=== PATIENT | female | born 1970 | race Two or more races ===

== ENCOUNTER 2017-02-13 11:43 | Emergency (ER) | payer OTHER ==
[~2017-02-13] VITALS: Ht 152.4 cm; Wt 59.0 kg
[2017-02-13] MEDS ORDERED: HYDROmorphone 2 MG/ML VIAL IV ONE (12:15)
[2017-02-13] MEDS ORDERED: ONDANSETRON PF 4 MG/2 ML VIAL. IV ONE (12:15)
[2017-02-13] MEDS ORDERED: IV NORMAL SALINE 500ML BAG 500 ML IV ONE (12:15)
[2017-02-13 12:39] LABS: BILIRUBIN,URINE NEGATIVE (NEG); GLUCOSE,URINE NEGATIVE (NEG); NITRITE,URINE NEGATIVE (NEG); PROTEIN,URINE NEGATIVE (NEG-TRACE); UROBILINOGEN,URINE 0.2 mg/dL (0.2 mg/dL)
[2017-02-13 12:47] LABS: BASO # 0.1 x10^3/uL (0.0-0.2); BASO % 1 % (0-3); EOS % 1 % (0-3); HEMATOCRIT 40.7 % (36.0-47.0); HEMOGLOBIN 12.9 g/dL (12.0-15.5); LYMPH # 1.2 x10^3/uL (1.0-4.8); LYMPH % 16 % (24-48); MEAN CORPUSCULAR HEMOGLOBIN 26 pg (25-35); MEAN CORPUSCULAR HGB CONC 32 g/dL (31-37); MEAN CORPUSCULAR VOLUME 81 fL (79-100); MONO % 7 % (0-9); NEUT % 76 % (31-73); PLATELET COUNT 194 x10^3/uL (140-400); RED BLOOD COUNT 5.05 x10^6/uL (3.50-5.40); RED CELL DISTRIBUTION WIDTH 20.3 % (11.5-14.5); WHITE BLOOD COUNT 7.8 x10^3/uL (4.0-11.0)
--- NOTE | 2017-02-13 12:48 | PHYS DOC ---
Past Medical History Past Medical History: Hypothyroid Past Surgical History: Tubal ligation, Other Additional Past Surgical Histo: BILATERAL ROTATOR CUFF REPAIR Alcohol Use: None Drug Use: None Adult General Chief Complaint Chief Complaint: LOWER BACK PAIN OR INJURY HPI HPI 38-year-old female presenting to the emergency department today with lower lumbar back pain after lifting a heavy piece of equipment at work yesterday. She reports having sharp shooting pain that radiates down her buttocks into her thigh. She also reports right lower quadrant abdominal pain with nausea. She is concerned that she may have appendicitis. He denies any vomiting blood in stool fevers or chills. Review of systems is negative for shortness of breath cough chest pain headache. She denies numbness weakness or tingling in her legs. She denies any incontinence dysuria or polyuria. All other review of systems is negative unless otherwise noted in history of present illness. ED course: 46-year-old female presenting to the emergency department today with lower lumbar back pain suggestive of probable musculoskeletal back pain however the patient is concerned she might have appendicitis having right lower quadrant abdominal pain and nausea. Upon arrival the patient is afebrile with normal heart rate. She is well-appearing. Upon examination of the abdomen the abdomen is mildly tender in the right lower quadrant without rebound tenderness guarding. Equivocal McBurney's point. Otherwise the remainder of the abdomen is nontender. The lower extremities have 5 out of 5 strength bilaterally. 2+ deep tendon reflexes in the legs. The remainder the exam is unremarkable. Blood work obtained along with CT the abdomen pelvis which was unremarkable. The patient was given IV hydromorphone along with Zofran which improved her low back pain. She was up slightly discharged home with oral opioids and muscle relaxants to follow up with her doctor the next 2-3 days. The patient was then discharged home in stable condition. They were to return if their symptoms worsened or if they were concerned for any reason. [id number] discharge instructions and return precautions were given. Patient's questions were answered to their satisfaction. Patient is comfortable plan. Review of Systems Review of Systems SEE ABOVE. Current Medications Current Medications Current Medications Medications (Trade) Dose Ordered Sig/Carolyn Start Time Stop Time Status Last Admin Dose Admin Hydromorphone HCl (Dilaudid) 0.5 mg 1X ONCE 02/13/17 12:15 02/13/17 12:16 DC 02/13/17 12:37 0.5 MG Info (Do NOT chart on this entry -- for MONITORING) 1 each PRN DAILY PRN 02/13/17 14:30 02/15/17 14:29 Iohexol (Omnipaque 300 Mg/ml) 75 ml 1X ONCE 02/13/17 14:15 02/13/17 14:16 DC 02/13/17 14:37 75 ML Ondansetron HCl (Zofran) 4 mg 1X ONCE 02/13/17 12:15 02/13/17 12:16 DC 02/13/17 12:37 4 MG Sodium Chloride 500 ml @ 500 mls/hr 1X ONCE 02/13/17 12:15 02/13/17 13:14 DC 02/13/17 12:37 500 MLS/HR Allergies Allergies Allergies Coded Allergies Type Severity Reaction Last Updated Verified No Known Drug Allergies 10/06/13 No Physical Exam Physical Exam SEE ABOVE Constitutional: Well developed, well nourished, no acute distress, non-toxic appearance. [] HENT: Normocephalic, atraumatic, bilateral external ears normal, oropharynx moist, no oral exudates, nose normal. [] Eyes: PERRLA, EOMI, conjunctiva normal, no discharge. [] Neck: Normal range of motion, no tenderness, supple, no stridor. [] Cardiovascular:Heart rate regular rhythm, no murmur [] Lungs & Thorax: Bilateral breath sounds clear to auscultation [] Abdomen: SEE ABOVE Skin: Warm, dry, no erythema, no rash. [] Back: Mild tenderness on the right paraspinal musculature. Positive straight leg test. Extremities: No tenderness, no cyanosis, no clubbing, ROM intact, no edema. [] Neurologic: Alert and oriented X 3, normal motor function, normal sensory function, no focal deficits noted. [] Psychologic: Affect normal, judgement normal, mood normal. [] Current Patient Data Vital Signs Vital Signs Date Time Temp Pulse Resp B/P (MAP) Pulse Ox O2 Delivery O2 Flow Rate FiO2 02/13/17 12:04 98.7 79 18 99 Room Air 98.7 Lab Values Laboratory Tests Test 02/13/17 12:20 02/13/17 12:33 02/13/17 12:35 02/13/17 13:41 Urine Collection Type Unknown Urine Color Yellow Urine Clarity Clear Urine pH 8.0 Urine Specific [place] 1.020 Urine Protein Negative mg/dL (NEG-TRACE) Urine Glucose (UA) Negative mg/dL (NEG) Urine Ketones (Stick) Negative mg/dL (NEG) Urine Blood Negative (NEG) Urine Nitrite Negative (NEG) Urine Bilirubin Negative (NEG) Urine Urobilinogen Dipstick 0.2 mg/dL (0.2 mg/dL) Urine Leukocyte Esterase Negative (NEG) Urine RBC 1-2 /HPF (0-2) Urine WBC Occ /HPF (0-4) Urine Squamous Epithelial Cells Many /LPF Urine Bacteria Many /HPF (0-FEW) Urine Mucus Mod /LPF POC Urine HCG, Qualitative Hcg negative (Negative) White Blood Count 7.8 x10^3/uL (4.0-11.0) Red Blood Count 5.05 x10^6/uL (3.50-5.40) Hemoglobin 12.9 g/dL (12.0-15.5) Hematocrit 40.7 % (36.0-47.0) Mean Corpuscular Volume 81 fL (79-100) Mean Corpuscular Hemoglobin 26 pg (25-35) Mean Corpuscular Hemoglobin Concent 32 g/dL (31-37) Red Cell Distribution Width 20.3 % (11.5-14.5) H Platelet Count 194 x10^3/uL (140-400) Neutrophils (%) (Auto) 76 % (31-73) H Lymphocytes (%) (Auto) 16 % (24-48) L Monocytes (%) (Auto) 7 % (0-9) Eosinophils (%) (Auto) 1 % (0-3) Basophils (%) (Auto) 1 % (0-3) Neutrophils # (Auto) 5.9 x10^3uL (1.8-7.7) Lymphocytes # (Auto) 1.2 x10^3/uL (1.0-4.8) Monocytes # (Auto) 0.5 x10^3/uL (0.0-1.1) Eosinophils # (Auto) 0.1 x10^3/uL (0.0-0.7) Basophils # (Auto) 0.1 x10^3/uL (0.0-0.2) Platelet Estimate Adequate (ADEQUATE) Polychromasia Slight Anisocytosis Mod Sodium Level 140 mmol/L (136-145) Potassium Level 3.8 mmol/L (3.5-5.1) Chloride Level 104 mmol/L (98-107) Carbon Dioxide Level 29 mmol/L (21-32) Anion Gap 7 (6-14) Blood Urea Nitrogen 11 mg/dL (7-20) Creatinine 0.6 mg/dL (0.6-1.0) Estimated GFR (Cockcroft-Gault) 106.7 Glucose Level 91 mg/dL (70-99) Calcium Level 8.9 mg/dL (8.5-10.1) Total Bilirubin 0.4 mg/dL (0.2-1.0) Direct Bilirubin 0.1 mg/dL (0.0-0.2) Aspartate Amino Transferase (AST) 20 U/L (15-37) Alanine Aminotransferase (ALT) 28 U/L (14-59) Alkaline Phosphatase 50 U/L (46-116) Total Protein 7.4 g/dL (6.4-8.2) Albumin 3.8 g/dL (3.4-5.0) Lipase 109 U/L (73-393) Laboratory Tests 02/13/17 12:35 Laboratory Tests 02/13/17 13:41 EKG EKG [] Radiology/Procedures Radiology/Procedures [] Course & Med Decision Making Course & Med Decision Making Pertinent Labs and Imaging studies reviewed. (See chart for details) [] Dragon Disclaimer Dragon Disclaimer This electronic medical record was generated, in whole or in part, using a voice recognition dictation system. Departure Departure Impression: Primary Impression: Low back pain Additional Impressions: Abdominal pain Nausea Disposition: HOME, SELF-CARE Condition: STABLE Referrals: CRYSTAL FARMER MD (PCP) Patient Instructions: Low Back Strain with Rehab-SportsMed Additional Instructions: Thank you for allowing us to participate in your care today. Followup with your primary care physician in 3 days if your symptoms do not improve. Call your Primary Doctor tomorrow and inform them of your visit today. If you do not have a primary care provider you can ask for a list of our primary care providers. Return to the emergency department you have any new or concerning findings. This should be evaluated by the primary care physician and any necessary consulting services for continued management within a few days after discharge. Return to emergency room if you have any new or concerning symptoms including but not limited to fever, chills, nausea, vomiting, intractable pain, any new rashes, chest pain, shortness of air, uncontrolled bleeding, difficulty breathing, and/or vision loss. You may have been prescribed medication that can change in your level of thinking and ability to operate machinery. These medications include hydrocodone and Ativan. Also, Benadryl has been known to do this as well. Be sure to check with your pharmacist and ask if the medications you've prescribed can affect your level of consciousness. I recommend not operating heavy machinery or driving while on medication such as these. Scripts Levofloxacin (LEVOFLOXACIN) 500 Mg Tablet 1 TAB PO DAILY, #7 TAB Prov: FRANK GUNDERSON MD 02/13/17 Hydrocodone Bit/Acetaminophen (HYDROCODONE-APAP 5-325 ) 1 Each Tablet 1 TAB PO PRN Q8HRS Y for SEVERE PAIN, #8 TAB 0 Refills Prov: FRANK GUNDERSON MD 02/13/17 Problem Qualifiers FRANK GUNDERSON MD Feb 13, 2017 12:47
[2017-02-13 12:49] LABS: BACTERIA,URINE MANY /HPF (0-FEW); SQUAMOUS EPITHELIAL CELL,UR MANY /LPF
[2017-02-13 12:50] LABS: WBC,URINE OCC /HPF (0-4)
[2017-02-13 14:03] LABS: CALCIUM 8.9 mg/dL (8.5-10.1); CREATININE 0.6 mg/dL (0.6-1.0); GFR 106.7; POTASSIUM 3.8 mmol/L (3.5-5.1)
[2017-02-13 14:09] LABS: ALBUMIN 3.8 g/dL (3.4-5.0); DIRECT BILIRUBIN 0.1 mg/dL (0.0-0.2); TOTAL BILIRUBIN 0.4 mg/dL (0.2-1.0); TOTAL PROTEIN 7.4 g/dL (6.4-8.2)
[2017-02-13 14:10] LABS: ANISOCYTOSIS MOD; PLT ESTIMATE ADEQUATE (ADEQUATE); POLYCHROMASIA SLIGHT
[2017-02-13] MEDS ORDERED: IOHEXOL 300 MG/ML 100ML VIAL. IV ONE (14:15)
[2017-02-13] MEDS ORDERED: CONTRAST GIVEN MC PRN (14:30)
--- NOTE | 2017-02-13 15:25 | RAD ---
CT abdomen and pelvis with contrast with 2016 Clinical indication: Right lower quadrant abdominal pain. Comparison: None. Technique: Multiple CT images of the abdomen and pelvis were obtained following the intravenous administration of 75 mL Omnipaque 300. PQRS Compliance Statement: One or more of the following individualized dose reduction techniques were utilized for this examination: 1. Automated exposure control 2. Adjustment of the mA and/or kV according to patient size 3. Use of iterative reconstruction technique Findings: Heart size is normal. Visualized lung bases are clear. Partial visualization of bilateral breast implants. Liver, gallbladder, spleen, pancreas, adrenal glands and kidneys are unremarkable. Abdominal aorta is normal in caliber. Small and large bowel loops are normal in caliber without obstruction. Appendix is normal in appearance. No abdominal free fluid. No pneumoperitoneum. No retroperitoneal or mesenteric lymphadenopathy. There are multiple tiny cysts or follicles at the left ovary. No significant pelvic free fluid. No iliac or inguinal lymphadenopathy. Urinary bladder is decompressed. Uterus is present with upper limits of normal endometrial thickening measuring 11 mm. There are no destructive osseous lesions. Impression: 1. No acute abdominal or pelvic process, specifically no appendicitis. 2. Upper limits of normal endometrial thickness measuring 11 mm. This may be due to phase in the menstrual cycle if patient is premenopausal. If clinically indicated, dedicated pelvic ultrasound could be performed for further evaluation.
[2017-02-13 15:30] VITALS: BP 141/102
[2017-02-13] MEDS ORDERED: HYDR-2758 PO (15:36)
[2017-02-13] MEDS ORDERED: LEVO500T8 PO (15:38)
== END 2017-02-13 15:52 | disposition home or self-care (01) ==
LOC: ER 11:43
DX: M54.5 Low back pain (principal); R10.31 Right lower quadrant pain; R11.0 Nausea; E03.9 Hypothyroidism, unspecified; Z98.51 Tubal ligation status
CPT/HCPCS: 36415; 74177; 80048; 80076; 81001; 81025; 83690; 85025; 87086; 96361; 96374; 96375; 99285; J1170; J2405; J7040; Q9967

== ENCOUNTER 2019-01-28 13:33 | Emergency (ER) | payer OTHER ==
[~2019-01-28] VITALS: Ht 154.9 cm; Wt 61.7 kg
[~2019-01-28 13:33] MED LIST: HYDR-2761 PO; LEVO500T8 PO
[2019-01-28 13:56] VITALS: BP 163/80
[2019-01-28] MEDS ORDERED: MECLIZINE HCL 12.5 MG TABLET. PO STA (14:33)
--- NOTE | 2019-01-28 14:46 | PHYS DOC ---
Past Medical History Past Medical History: GERD, Hypothyroid Past Surgical History: Tubal ligation, Other Additional Past Surgical Histo: BILATERAL ROTATOR CUFF REPAIR Alcohol Use: None Drug Use: None Adult General Chief Complaint Chief Complaint: RINGING IN EARS HPI HPI Patient is a 48 year old female who presents with left ear ringing and dizziness has been ongoing since Wednesday. She describes the dizziness as the room spinning. Denies any other complaints. She states that she saw her primary care doctor earlier this week and put her on a Medrol Dosepak. She states that a year ago she had issues of vertigo. Review of Systems Review of Systems Constitutional: Reports vertigo, Denies fever or chills [] Eyes: Denies change in visual acuity, redness, or eye pain [] HENT: Denies nasal congestion or sore throat. Reports L ear ringing. Respiratory: Denies cough or shortness of breath [] Cardiovascular: No additional information not addressed in HPI [] GI: Denies abdominal pain, nausea, vomiting, bloody stools or diarrhea [] : Denies dysuria or hematuria [] Musculoskeletal: Denies back pain or joint pain [] Integument: Denies rash or skin lesions [] Neurologic: Denies headache, focal weakness or sensory changes [] Endocrine: Denies polyuria or polydipsia [] Complete systems were reviewed and found to be within normal limits, except as documented in this note. Current Medications Current Medications Current Medications Medications (Trade) Dose Ordered Sig/Carolyn Start Time Stop Time Status Last Admin Dose Admin Meclizine HCl (Antivert) 25 mg 1X STAT 01/28/19 14:33 01/28/19 14:37 DC 01/28/19 14:52 25 MG Allergies Allergies Allergies Coded Allergies Type Severity Reaction Last Updated Verified No Known Drug Allergies 10/06/13 No Physical Exam Physical Exam Constitutional: Well developed, well nourished, no acute distress, non-toxic appearance. [] HENT: Normocephalic, atraumatic, bilateral external ears normal, left tympanic membrane is pearly figueroa, oropharynx moist, no oral exudates, nose normal. Eyes: PERRLA, EOMI, conjunctiva normal, no discharge. [] Neck: Normal range of motion, no tenderness, supple, no stridor. [] Cardiovascular:Heart rate regular rhythm, no murmur [] Lungs & Thorax: Bilateral breath sounds clear to auscultation [] Abdomen: Bowel sounds normal, soft, no tenderness, no masses, no pulsatile masses. [] Skin: Warm, dry, no erythema, no rash. [] Back: No tenderness, no CVA tenderness. [] Extremities: No tenderness, no cyanosis, no clubbing, ROM intact, no edema. [] Neurologic: Alert and oriented X 3, normal motor function, normal sensory function, no focal deficits noted. + romberg test. Psychologic: Affect normal, judgement normal, mood normal. [] Current Patient Data Vital Signs Vital Signs Date Time Temp Pulse Resp B/P (MAP) Pulse Ox O2 Delivery O2 Flow Rate FiO2 01/28/19 13:56 98.1 67 16 163/80 (107) 97 Room Air 98.1 EKG EKG [] Radiology/Procedures Radiology/Procedures [][facility] [address] [place] [address] IMAGING REPORT Signed PATIENT: ESTELITA FLOYD I ACCOUNT: [id number] : 1970 LOCATION: ER AGE: 48 SEX: F EXAM STATUS: REG ER ORD. PHYSICIAN: DEQUAN SIMEON APRN REASON: dizziness PROCEDURE: CT HEAD WO CONTRAST CT HEAD WO CONTRAST History: Dizziness Comparison: None. Technique: Noncontrast CT imaging was performed of the head. Exposure: One or more of the following individualized dose reduction techniques were utilized for this examination: 1. Automated exposure control 2. Adjustment of the mA and/or kV according to patient size 3. Use of iterative reconstruction technique. Findings: No acute extra-axial or parenchymal hemorrhage is identified. There is no significant intra-axial mass effect, midline shift, or extra-axial fluid collection. The soria-white differentiation of the major vascular territories is preserved. The ventricles, sulci, and cisterns are within normal limits in size and configuration. The mastoid air cells and the visualized paranasal sinuses are aerated. No acute calvarial abnormality is identified. Impression: 1. No acute intracranial abnormality is identified. Electronically signed by: Swathi Schulte MD (01/28/2019 3:10 PM) [facility] [place] and SIGNED BY: SWATHI SCHULTE MD DATE: 01/28/19 6200 Course & Med Decision Making Course & Med Decision Making Pertinent Labs and Imaging studies reviewed. (See chart for details) She appears to be having Benign Positional Vertigo. Will get CT Head and give Meclizine. CT head is unremarkable. Will d/c home to follow up with ENT. Jayy Disclaimer Dragon Disclaimer This electronic medical record was generated, in whole or in part, using a voice recognition dictation system. Departure Departure Impression: Primary Impression: Vertigo Disposition: HOME, SELF-CARE Condition: STABLE Referrals: MARCIANO RIVERA MD (PCP) MANNIE CARDENAS MD Patient Instructions: Vertigo Additional Instructions: Thank you for visiting [facility]. We appreciate you trusting us with your care. If any additional problems come up don't hesitate to return to visit us. Please follow up with your primary care provider so they can plan additional care if needed and know about the problem that you had. If symptoms worsen come back to the Emergency Department. Any concerning symptoms that start such as chest pain, shortness of air, weakness or numbness on one side of the body, running high fevers or any other concerning symptoms return to the ER. Scripts Meclizine Hcl (MECLIZINE HCL) 25 Mg Tablet 1 TAB PO PRN TID PRN for DIZZINESS, #30 TAB Prov: DEQUAN SIMEON APRN 01/28/19 DEQUAN SIMEON APRN Jan 28, 2019 14:46
--- NOTE | 2019-01-28 15:13 | RAD ---
CT HEAD WO CONTRAST History: Dizziness Comparison: None. Technique: Noncontrast CT imaging was performed of the head. Exposure: One or more of the following individualized dose reduction techniques were utilized for this examination: 1. Automated exposure control 2. Adjustment of the mA and/or kV according to patient size 3. Use of iterative reconstruction technique. Findings: No acute extra-axial or parenchymal hemorrhage is identified. There is no significant intra-axial mass effect, midline shift, or extra-axial fluid collection. The soria-white differentiation of the major vascular territories is preserved. The ventricles, sulci, and cisterns are within normal limits in size and configuration. The mastoid air cells and the visualized paranasal sinuses are aerated. No acute calvarial abnormality is identified. Impression: 1. No acute intracranial abnormality is identified. Electronically signed by: Pavel Howe MD (01/28/2019 3:10 PM) [facility] [place]
[2019-01-28] MEDS ORDERED: MECL25TA3 PO (15:30)
== END 2019-01-28 15:37 | disposition home or self-care (01) ==
LOC: ER 13:33
DX: R42 Dizziness and giddiness (principal); K21.9 Gastro-esophageal reflux disease without esophagitis; E03.9 Hypothyroidism, unspecified; Z98.51 Tubal ligation status
CPT/HCPCS: 70450; 99284; J8597

== ENCOUNTER 2019-08-14 16:53 | Emergency (ER) | payer OTHER ==
[~2019-08-14] VITALS: Ht 162.6 cm; Wt 60.0 kg
[~2019-08-14 16:53] MED LIST changes: +MECL-75 PO
[2019-08-14 17:01] VITALS: BP 187/86
--- NOTE | 2019-08-14 17:33 | RAD ---
Left lower extremity venous Doppler ultrasound History: Reason: Left calf pain, Comparison: None. Procedure: Color flow Doppler, Doppler spectral analysis, and 2D images are obtained with and without compression in the area of the common femoral vein, superficial femoral vein - femoral vein junction, main femoral vein (superficial femoral vein) and popliteal vein. Veins of the proximal calf are also imaged. Findings: There is normal color flow, augmentation, and compressibility of all visualized vein segments. No evidence of deep venous thrombus is present. IMPRESSION: No evidence of left lower extremity deep venous thrombosis. Electronically signed by: Rishabh Butts MD (08/14/2019 5:31 PM) [id number]
--- NOTE | 2019-08-14 17:42 | PHYS DOC ---
Past Medical History Past Medical History: DVT, GERD, Hypothyroid Past Surgical History: Tubal ligation, Other Additional Past Surgical Histo: BILATERAL ROTATOR CUFF REPAIR Smoking Status: Never Smoker Alcohol Use: None Drug Use: None General Adult EDM: Chief Complaint: LOWER EXT PAIN HPI: HPI: Patient is a 49 year old female with pmh of DVT presents with report of left calf pain since Wednesday. Patient reports she had an EGD performed on . Patient reports possible DVT given prior history. Reports she was previously on Coumadin for DVT but was taken off after approximately 6 months. Denies trauma. Denies fever/chills. Denies chest pain or shortness of breath. Review of Systems: Review of Systems: Constitutional: Denies fever or chills Eyes: Denies redness or eye pain HENT: Denies nasal congestion or sore throat Respiratory: Denies cough or shortness of breath Cardiovascular: Denies chest pain or palpitations GI: Denies abdominal pain, nausea, or vomiting : Denies dysuria or hematuria Musculoskeletal: Denies back pain; reports left calf pain Integument: Denies rash or skin lesions Neurologic: Denies headache, focal weakness or sensory changes Complete systems were reviewed and found to be within normal limits, except as documented in this note. Allergies: Allergies: Allergies Coded Allergies Type Severity Reaction Last Updated Verified No Known Drug Allergies 10/06/13 No Physical Exam: PE: Constitutional: Well developed, well nourished, no acute distress, non-toxic appearance HENT: Normocephalic, atraumatic Eyes: Conjunctiva normal, no discharge Neck: Normal range of motion, no tenderness, supple Cardiovascular: Left DP and PT +2, CR < 2 sec Lungs & Thorax: No respiratory distress, equal chest rise and fall Skin: Warm, dry, no erythema, no rash Back: No tenderness, no CVA tenderness Extremities: Left calf tenderness on palpation, no deformity, ROM intact, no edema Neurologic: Alert and oriented X 3, no focal deficits noted Psychologic: Affect anxious, judgment normal Current Patient Data: Vital Signs: Vital Signs Date Time Temp Pulse Resp B/P (MAP) Pulse Ox O2 Delivery O2 Flow Rate FiO2 08/14/19 17:01 98.4 60 18 187/86 (119) 98 Room Air 98.4 EKG: EKG: [] Radiology/Procedures: Radiology/Procedures: PROCEDURE: VENOUS LOWER EXTREMITY LEFT Left lower extremity venous Doppler ultrasound History: Reason: Left calf pain, Comparison: None. Procedure: Color flow Doppler, Doppler spectral analysis, and 2D images are obtained with and without compression in the area of the common femoral vein, superficial femoral vein - femoral vein junction, main femoral vein (superficial femoral vein) and popliteal vein. Veins of the proximal calf are also imaged. Findings: There is normal color flow, augmentation, and compressibility of all visualized vein segments. No evidence of deep venous thrombus is present. IMPRESSION: No evidence of left lower extremity deep venous thrombosis. Electronically signed by: Rishabh Butts MD (08/14/2019 5:31 PM) [id number] Course & Med Decision Making: Course & Med Decision Making Pertinent Imaging studies reviewed. (See chart for details) Patient presents with concern for possible acute DVT to left lower extremity. No known trauma. hx of prior DVT. hx of recent procedure. Venous doppler negative for acute DVT. VS stable. Denies chest pain or SOA. Denies pleuritic pain. Patient stable for discharge with outpatient follow-up with PCP. Discussed findings and plan with patient and family, who acknowledge understanding and agreement. Dragon Disclaimer: Dragon Disclaimer: This electronic medical record was generated, in whole or in part, using a voice recognition dictation system. Departure Departure Impression: Primary Impression: Pain of left calf Additional Impression: Feared condition not demonstrated Disposition: 01 HOME, SELF-CARE Condition: STABLE Referrals: DEQUAN PRYOR MD (PCP) Patient Instructions: Leg Cramps Additional Instructions: Use over the counter Ibuprofen and/or Tylenol for pain. ICE area 20 min on then leave off for next 20 min. Repeat as needed for next few days. Justicifation of Admission Dx: Justifications for Admission: Justification of Admission Dx: N/A DEQUAN STEVE DO Aug 14, 2019 17:42
== END 2019-08-14 18:15 | disposition home or self-care (01) ==
LOC: ER 16:53
DX: M79.662 Pain in left lower leg (principal); K21.9 Gastro-esophageal reflux disease without esophagitis; E03.9 Hypothyroidism, unspecified; Z98.51 Tubal ligation status; Z71.1 Person with feared health complaint in whom no diagnosis is made; Z98.890 Other specified postprocedural states
CPT/HCPCS: 93971; 99284

== ENCOUNTER → 2019-10-27 | Outpatient (CLI) | payer OTHER ==
--- NOTE | 2019-10-27 17:00 | RAD ---
EXAM: Left foot, to views. HISTORY: Second metatarsal phalangeal joint pain. COMPARISON: None. FINDINGS: 2 views of the left foot are obtained. There is no fracture, dislocation or subluxation. And joint spaces are unremarkable. There is no radiodense foreign body. IMPRESSION: No acute osseous finding. Electronically signed by: Claire Burnette MD (10/27/2019 4:57 PM) [facility]
== END | disposition home or self-care (01) ==
LOC: RAD 11:59
PROVIDERS: ATTEND Family Medicine
DX: M79.675 Pain in left toe(s) (principal)
CPT/HCPCS: 73620

== ENCOUNTER 2019-12-30 19:24 | Emergency (ER) | payer OTHER ==
[~2019-12-30] VITALS: Ht 154.9 cm; Wt 59.0 kg
[2019-12-30] MEDS ORDERED: LIDO:MAALOX 1:1 20 ML SINGLE DOSE. ONE (20:00)
--- NOTE | 2019-12-30 20:01 | PHYS DOC ---
Past Medical History Past Medical History: DVT, GERD, Hypothyroid Past Surgical History: Tubal ligation, Other Additional Past Surgical Histo: BILATERAL ROTATOR CUFF REPAIR Smoking Status: Never Smoker Alcohol Use: None Drug Use: None General Adult EDM: Chief Complaint: SORE THROAT HPI: HPI: Patient is a 49 year old female who presents with burning in throat sensation after which she describes as spitting up stomach acid prior to her arrival. Patient states that she has esophageal problems and sees a GI specialist to have her esophagus dilated periodically. Patient states that she has an appointment this Wednesday to see Dr. Zimmerman. Patient denies any fever chills, any visual changes, any nasal congestion cough or shortness of breath. Patient denies any chest pains or swelling of her extremities. Patient denies any abdominal pain, nausea, diarrhea, constipation. Patient states that she did not vomit however describes this episode as spitting up some stomach acid. Patient denies any problems urinating, denies any STI concerns. Patient denies any back pain or pain in her joints, skin rashes, headaches, focal weaknesses or sensory changes. She denies any swelling of her glands, depressions or anxieties. Patient denies homicidal or suicidal ideations. Patient states that no one else living in her home has the same symptoms, patient states that she did not take anything for this burning sensation at home prior to arrival to the ER today. Review of Systems: Review of Systems: Constitutional: Denies fever or chills. Eyes: Denies change in visual acuity. HENT: Denies nasal congestion or sore throat. Respiratory: Denies cough or shortness of breath. Cardiovascular: Denies chest pain or edema. GI: Denies abdominal pain, nausea, vomiting, constipation or diarrhea. Patient complains of spitting up stomach acid which has caused some throat burning today. : Denies dysuria. Denies STI concerns. Musculoskeletal: Denies back pain or joint pain. Integument: Denies rash. Neurologic: Denies headache, focal weakness or sensory changes. Lymphatic: Denies swollen glands. Psychiatric: Denies depression or anxiety. Denies homicidal or suicidal ideations. Heart Score: Risk Factors: Risk Factors: DM, Current or recent (<one month) smoker, HTN, HLP, family history of CAD, obesity. Risk Scores: Score 0 - 3: 2.5% MACE over next 6 weeks - Discharge Home Score 4 - 6: 20.3% MACE over next 6 weeks - Admit for Clinical Observation Score 7 - 10: 72.7% MACE over next 6 weeks - Early Invasive Strategies Family History: Family History: Patient reports family history of hypertension, diabetes. Current Medications: Patient states she does not take any prescription medications at home. Allergies: Allergies: Allergies Coded Allergies Type Severity Reaction Last Updated Verified No Known Drug Allergies 10/06/13 No Physical Exam: PE: Constitutional: Well developed, well nourished, no acute distress, non-toxic ap pearance. HENT: Normocephalic, atraumatic, bilateral external ears normal, oropharynx moist, no oral exudates, nose normal. Eyes: PERRLA, EOMI, conjunctiva normal, no discharge. Neck: Normal range of motion, no tenderness, supple, no stridor. Cardiovascular:Heart rate regular rhythm, no murmur, heart sounds S1-S2 to auscultation. Lungs & Thorax: Bilateral breath sounds clear to auscultation all lung white. Abdomen: Bowel sounds normal all 4 quadrants to auscultation, soft, no tenderness, no masses, no pulsatile masses. Skin: Warm, dry, no erythema, no rash. Back: No tenderness, no CVA tenderness. Extremities: No tenderness, no cyanosis, no clubbing, ROM intact, no edema. Neurologic: Alert and oriented X 3, normal motor function, normal sensory function, no focal deficits noted. Psychologic: Affect normal, judgement normal, mood normal. Current Patient Data: Vital Signs: Vital Signs Date Time Temp Pulse Resp B/P (MAP) Pulse Ox O2 Delivery O2 Flow Rate FiO2 12/30/19 19:44 98.1 94 18 170/86 (114) 100 Room Air 98.1 EKG: EKG: [] Radiology/Procedures: Radiology/Procedures: [] Course & Med Decision Making: Course & Med Decision Making Pertinent Labs and Imaging studies reviewed. (See chart for details) 49-year-old female patient arrives emergency department today with complaints of throat burning after spitting up some stomach acid just prior to arrival. Patient did not try taking anything at home for this. Patient states she has a chronic history of esophageal problems and requires occasional esophageal dilatation. Patient states that she has an appointment this Wednesday with Dr. Propac her GI specialist. Physical exam was nonconcerning for infectious process, however will give GI cocktail for GI indigestion and gastric reflux. Patient was given GI cocktail in the emergency department which relieved the patient's pain and discomfort upon reexamination. Patient stated that she feels like she can go home and follow-up with her doctor this Wednesday without problems. Discussed with patient discharge instructions, return to ER concerns, patient gave verbal understanding of these instructions, had no further questions or concerns. Patient discharged home without incident. No prescriptions were given at discharge time. Dragon Disclaimer: Dragon Disclaimer: This electronic medical record was generated, in whole or in part, using a voice recognition dictation system. Departure Departure Impression: Primary Impression: GERD (gastroesophageal reflux disease) Qualified Codes: K21.9 - Gastro-esophageal reflux disease without esophagitis Disposition: 01 DC HOME SELF CARE/HOMELESS Condition: GOOD Referrals: DEQUAN PRYOR MD (PCP) Patient Instructions: Gastroesophageal Reflux Disease, Adult Additional Instructions: Take the medications your doctor recommended as directed. Keep your appointment with the GI specialist this coming Wednesday. Return to the emergency department for worsening symptoms or other concerns. DEQUAN VENEGAS APRN Dec 30, 2019 20:01
[2019-12-30] MEDS ORDERED: LIDO:MAALOX 1:1 20 ML SINGLE DOSE. SWSW ONE ×2 (20:15)
[2019-12-30 21:31] VITALS: BP 153/70
== END 2019-12-30 21:39 | disposition home or self-care (01) ==
LOC: ER 19:24
DX: K21.9 Gastro-esophageal reflux disease without esophagitis (principal); E03.9 Hypothyroidism, unspecified; Z86.718 Personal history of other venous thrombosis and embolism; Z98.51 Tubal ligation status
CPT/HCPCS: 99283

== ENCOUNTER 2021-02-17 04:26 | Inpatient (IN) | payer OTHER ==
[~2021-02-17] VITALS: Ht 162.6 cm; Wt 61.1 kg
[~2021-02-17 04:26] MED LIST changes: -LEVO500T8 PO; +LEVO500T9 PO
[2021-02-17 04:50] LABS: BASO # 0.1 x10^3/uL (0.0-0.2); BASO % 1 % (0-3); EOS # 0.2 x10^3/uL (0.0-0.7); EOS % 5 % (0-3); HEMATOCRIT 37.8 % (36.0-47.0); HEMOGLOBIN 12.5 g/dL (12.0-15.5); LYMPH # 1.8 x10^3/uL (1.0-4.8); LYMPH % 43 % (24-48); MEAN CORPUSCULAR HEMOGLOBIN 27 pg (25-35); MEAN CORPUSCULAR HGB CONC 33 g/dL (31-37); MEAN CORPUSCULAR VOLUME 81 fL (79-100); MONO # 0.5 x10^3/uL (0.0-1.1); MONO % 12 % (0-9); NEUT # 1.6 x10^3/uL (1.8-7.7); NEUT % 38 % (31-73); PLATELET COUNT 200 x10^3/uL (140-400); RED BLOOD COUNT 4.65 x10^6/uL (3.50-5.40); RED CELL DISTRIBUTION WIDTH 14.6 % (11.5-14.5); WHITE BLOOD COUNT 4.2 x10^3/uL (4.0-11.0)
--- NOTE | 2021-02-17 04:53 | PHYS DOC ---
Past Medical History Past Medical History: DVT, GERD, Hypothyroid (DEQUAN STEVE DO) Past Surgical History: Tubal ligation, Other Additional Past Surgical Histo: BILATERAL ROTATOR CUFF REPAIR, Hiatal Hernia repair (DEQUAN STEVE DO) Smoking Status: Never Smoker Alcohol Use: Occasionally Drug Use: None (DEQUAN STEVE DO) General Adult EDM: Chief Complaint: ABDOMINAL PAIN HPI: HPI: Patient is a 50 year old female who presents for epigastric abdominal pain. Patient states she woke up this morning for work and had extreme pain in the upper middle of her abdomen which was sudden and sharp in nature. She also notes nausea but has not had any vomiting. She notes she has a history of GERD and takes Omeprazole. She has had a hiatal hernia repair. Her last bowel movement was yesterday but she says it was very hard. She otherwise does not have any other complaints at this time. She has had the COVID vaccinations with [employer] x 2. Denies trauma. Reports she has not had this type of pain before. Reports she did have drink alcohol this weekend but denies history of alcohol abuse or pancreatitis. (DEQUAN STEVE DO) Review of Systems: Review of Systems: Constitutional: Denies fever or chills HENT: Denies nasal congestion or sore throat Respiratory: Denies cough or shortness of breath Cardiovascular: Denies palpitations; reports some lower chest pain/epigastric pain GI: Reports epigastric abdominal pain, nausea, and constipation; denies vomiting : Denies dysuria or hematuria Musculoskeletal: Denies back pain or joint pain Neurologic: Denies headache, focal weakness or sensory changes Complete systems were reviewed and found to be within normal limits, except as documented in this note. (DEQUAN STEVE DO) Heart Score: C/O Chest Pain: No HEART Score for Chest Pain: HEART Score for Chest Pain Response (Comments) Value History Moderately Suspicious 1 ECG Nonspecific Repolarizatio 1 Age >45 - < 65 1 Risk Factors No Risk Factors 0 Troponin < Normal Limit 0 Total 3 Risk Factors: Risk Factors: DM, Current or recent (<one month) smoker, HTN, HLP, family history of CAD, obesity. Risk Scores: Score 0 - 3: 2.5% MACE over next 6 weeks - Discharge Home Score 4 - 6: 20.3% MACE over next 6 weeks - Admit for Clinical Observation Score 7 - 10: 72.7% MACE over next 6 weeks - Early Invasive Strategies (DEQUAN STEVE DO) Family History: Family History: Denies family history of heart disease or [place]. (DEQUAN STEVE DO) Current Medications: Current Medications Medications (Trade) Dose Ordered Sig/Carolyn Start Time Stop Time Status Last Admin Dose Admin Famotidine (Pepcid Vial) 20 mg 1X ONCE 02/17/21 04:45 02/17/21 04:46 UNV Fentanyl Citrate (Fentanyl 2ml Vial) 75 mcg 1X ONCE 02/17/21 04:45 02/17/21 04:46 UNV Ondansetron HCl (Zofran) 4 mg 1X ONCE 02/17/21 04:45 02/17/21 04:46 UNV Sodium Chloride 1,000 ml @ 1,000 mls/hr 1X ONCE 02/17/21 04:45 02/17/21 05:44 UNV (DEQUAN STEVE DO) Allergies: Allergies: Allergies Coded Allergies Type Severity Reaction Last Updated Verified No Known Drug Allergies 10/06/13 No (DEQUAN STEVE DO) Physical Exam: PE: Constitutional: Well developed, well nourished, moderate distress secondary to pain HENT: Normocephalic, atraumatic Eyes: Conjunctiva normal, no discharge Neck: Normal range of motion, supple Lungs & Thorax: No respiratory distress, equal chest rise and fall Abdomen: Severe tenderness to palpation of epigastric region, mild tenderness to palpation to bilateral lower quadrants Skin: Diaphoretic, warm Back: No tenderness, no CVA tenderness Extremities: No tenderness, no edema Neurologic: Alert and oriented X 3, no focal deficits noted Psychologic: Affect normal, judgment normal (DEQUAN STEVE DO) EKG: EKG: @0434: irregular rhythm without P waves, HR 63 bpm, left bundle branch block, QRS 154, QT/QTc 442/456 (DEQUAN STEVE DO) Radiology/Procedures: Radiology/Procedures: [] (DEQUAN STEVE DO) Radiology/Procedures: IMAGING REPORT Signed PATIENT: ESTELITA FLOYD I ACCOUNT: [id number] : 1970 LOCATION: ER AGE: 50 SEX: F EXAM STATUS: REG ER ORD. PHYSICIAN: DEQUAN STEVE DO REASON: epigastirc pain, eval for dissection, OMNI 350 100 ML IV PROCEDURE: CT ANGIO CHEST ABD PELVIS EXAM: CTA OF THE CHEST, ABDOMEN AND PELVIS WITH CONTRAST. HISTORY: Chest and abdominal pain, concern for dissection. TECHNIQUE: Computed tomographic angiography of the chest, abdomen and pelvis was performed after the intravenous administration of iodinated contrast. Three- dimensional reconstructions were also performed. One or more of the following individualized dose reduction techniques were utilized for this examination: 1. Automated exposure control. 2. Adjustment of the mA and/or kV according to patient size. 3. Use of iterative reconstruction technique. COMPARISON: 02/13/2017. FINDINGS: Bone windows reveal no suspicious lesions. Contrast timing limits assessment of the aorta. The entire aorta is essentially unopacified. There is no evidence of dissection. There is no thoracic or abdominal aortic aneurysm. There is no evidence of arch vessel stenosis. There is no pulmonary embolism. The celiac axis and superior mesenteric artery are grossly patent though minimally opacified. The inferior mesenteric artery is patent. Renal artery stenosis cannot be excluded on this exam. There are no pathologically enlarged mediastinal or axillary lymph nodes. There is no pleural or pericardial effusion. The heart is not enlarged. Bilateral breast implants are noted. 3 mm nodules in the right upper lobe posteriorly are noted on images 24 and 25 and are likely benign at this small size. There is mild atelectasis in the left base. A large hiatal hernia has developed in the interval. There appears to be torsion along the gastric body. A gallstone is noted. The liver, spleen, pancreas, adrenal glands and kidneys are unremarkable on this essentially noncontrast study. There are no pathologically enlarged lymph nodes. The appendix is not inflamed. There is no small bowel obstruction. IMPRESSION: 1. Large hiatal hernia with evidence of gastric volvulus. 2. Assessment of the aorta is very limited secondary to contrast timing. No dissection is detected. These findings were called to Dr. Franklin by Michi Álvarez on 02/17/2021 at 7:10 AM. Electronically signed by: Trice Álvarez MD (02/17/2021 7:16 AM) [facility] DICTATED and SIGNED BY: NIGEL ÁLVAREZ MD DATE: 02/17/21 [id number] (HELDER FRANKLIN DO) Course & Med Decision Making: Course & Med Decision Making Pertinent Labs and Imaging studies reviewed. (See chart for details) Patient presented with severe epigastric abdominal pain with nausea. Fentanyl and Zofran given for symptomatic relief. EKG ordered which showed LBBB but no ST elevation. Troponin negative. Lactic acid elevated. Hypokalemia noted. BP elevated. Difficulty controlling pain. Concern for possible dissection. CTA chest/abd/pelvis obtained and pending. 0600- Signout given to Dr. Franklin for further evaluation and final disposition. Discussed current findings and plan with patient and family, who acknowledge understanding and agreement. (DEQUAN STEVE DO) Course & Med Decision Making This patient was initially seen by Dr. Steve. Please see his note for further details of HPI in H&P. I assumed care at 06 100 this morning. The patient received multiple medications for pain and antinausea medicine. She has been given IV fluids. She is been kept n.p.o. I received a call from the radiologist, indicating that the patient has a gastric volvulus. The patient reports to me that she went to [place] in May of this year and had a surgery to try to repair her hiatal hernia, based on the description it sounds like it was an attempted Niesen fundoplication. She still has a significant hiatal hernia present on CT. I explained that she will require admission to the hospital, general surgery and GI consultations. I spoke with Dr. Roy of general surg [facility], who agrees to see the patient while admitted. I spoke with Dr. Bustos of GI, who will see the patient while she is admitted. I did order another dose of IV allotted as well as another bolus of IV fluids. She is kept n.p.o. She is comfortable with the plan for admission. (HELDER FRANKLIN DO) Dragon Disclaimer: Dragon Disclaimer: This electronic medical record was generated, in whole or in part, using a voice recognition dictation system. (DEQUAN STEVE DO) Departure Departure Impression: Primary Impression: Abdominal pain Qualified Codes: R10.13 - Epigastric pain Additional Impressions: Hypokalemia Lactic acidosis Gastric volvulus Hiatal hernia Disposition: ADMITTED INPATIENT Admitting Physician: ERIN (Dr. Shankar) (HELDER FRANKLIN DO) Condition: GUARDED Referrals: HARI CEVALLOS APRN-[facility] MAINTENANCE-[facility] (PCP) DEQUAN STEVE DO Feb 17, 2021 04:53 HELDER FRANKLIN DO Feb 17, 2021 07:21
--- NOTE | 2021-02-17 04:54 | EKG ---
[facility] [address] [place] [address] Test Date: 2021-02-17 Test Time: 04:34:03 Pat Name: ESTELITA FLOYD Department: Room: Gender: F Skinner Pelts: : 1970 Requested By: DEQUAN STEVE Order Number: [id number] Reading MD: Ben Miller MD Measurements Intervals [place] Rate: 63 P: SD: QRS: -153 QRSD: 154 T: 52 QT: 442 QTc: 456 Interpretive Statements SR LBBB CANNOT RULE OUT PACED RHYTHM Electronically Signed On 02-24-2021 15:27:41 WASHER OFF by Ben Miller MD
[2021-02-17 05:00] LABS: CALCIUM 8.6 mg/dL (8.5-10.1); CREATININE 0.8 mg/dL (0.6-1.0); GFR 75.3; POTASSIUM 3.2 mmol/L (3.5-5.1)
[2021-02-17] MEDS ORDERED: fentaNYL PF VIAL 100 MCG/2 ML VIAL IV ONE (05:00)
[2021-02-17] MEDS ORDERED: ONDANSETRON PF 4 MG/2 ML VIAL. IVP ONE (05:00)
[2021-02-17] MEDS ORDERED: FAMOTIDINE 20 MG/2 ML VIAL IVP ONE (05:00)
[2021-02-17] MEDS ORDERED: IV NORMAL SALINE 1000ML BAG 1,000 ML IV ONE ×3 (05:00→08:15)
[2021-02-17 05:07] LABS: ALBUMIN 3.7 g/dL (3.4-5.0); ALBUMIN/GLOBULIN RATIO 0.9 (1.0-1.7); TOTAL BILIRUBIN 0.3 mg/dL (0.2-1.0); TOTAL PROTEIN 7.7 g/dL (6.4-8.2)
[2021-02-17] MEDS ORDERED: IOHEXOL 350 MG/ML 100 ML VIAL. ONE (05:56)
[2021-02-17] MEDS ORDERED: IOHEXOL 350 MG/ML 100 ML VIAL. IV ONE (06:00)
[2021-02-17] MEDS ORDERED: MORPHINE SULFATE 4 MG/ML INJ. IVP ONE (06:00)
[2021-02-17] MEDS ORDERED: CONTRAST GIVEN. MC PRN (06:00)
[2021-02-17 06:19] LABS: BILIRUBIN,URINE NEGATIVE (NEG); CLARITY,URINE CLEAR; COLOR,URINE YELLOW; NITRITE,URINE NEGATIVE (NEG); PH,URINE 7.5 (<5.0-8.0); PROTEIN,URINE NEGATIVE (NEG-TRACE); UROBILINOGEN,URINE 0.2 mg/dL (0.2 mg/dL)
[2021-02-17] MEDS ORDERED: LABETALOL 20 MG/4 ML DISP.SYRIN. IVP ONE (06:30)
[2021-02-17] MEDS ORDERED: HYDROmorphone 2 MG/ML INJ. IVP ONE ×2 (06:30→07:30)
[2021-02-17 06:49] LABS: BACTERIA,URINE 0 /HPF (0-FEW); RBC,URINE 0 /HPF (0-2); WBC,URINE OCC /HPF (0-4)
--- NOTE | 2021-02-17 07:18 | RAD ---
EXAM: CTA OF THE CHEST, ABDOMEN AND PELVIS WITH CONTRAST. HISTORY: Chest and abdominal pain, concern for dissection. TECHNIQUE: Computed tomographic angiography of the chest, abdomen and pelvis was performed after the intravenous administration of iodinated contrast. Three-dimensional reconstructions were also perform ed. One or more of the following individualized dose reduction techniques were utilized for this exam ination: 1. Automated exposure control. 2. Adjustment of the mA and/or kV according to patient size. 3. Use of iterative reconstruction technique. COMPARISON: 02/13/2017. FINDINGS: Bone windows reveal no suspicious lesions. Contrast timing limits assessment of the aorta. The entire aorta is essentially unopacified. There is no evidence of dissection. There is no thoracic or abdominal aortic aneurysm. There is no evidence o f arch vessel stenosis. There is no pulmonary embolism. The celiac axis and superior mesenteric artery are grossly patent though minimally opacified. The inf erior mesenteric artery is patent. Renal artery stenosis cannot be excluded on this exam. There are no pathologically enlarged mediastinal or axillary lymph nodes. There is no pleural or greer cardial effusion. The heart is not enlarged. Bilateral breast implants are noted. 3 mm nodules in the right upper lobe posteriorly are noted on images 24 and 25 and are likely benign at this small size. There is mild atelectasis in the left base. A large hiatal hernia has developed in the interval. There appears to be torsion along the gastric basim dy. A gallstone is noted. The liver, spleen, pancreas, adrenal glands and kidneys are unremarkable on thi s essentially noncontrast study. There are no pathologically enlarged lymph nodes. The appendix is not inflamed. There is no small bowel obstruction. IMPRESSION: 1. Large hiatal hernia with evidence of gastric volvulus. 2. Assessment of the aorta is very limited secondary to contrast timing. No dissection is detected. These findings were called to Dr. Ramirez by Michi Álvarez on 02/17/2021 at 7:10 AM. Electronically signed by: Trice Álvarez MD (02/17/2021 7:16 AM) [facility]
[2021-02-17] MEDS ORDERED: ONDANSETRON PF 4 MG/2 ML VIAL. IVP PRN ×2 (08:15→20:00)
[2021-02-17] MEDS: HYDROmorphone 2 MG/ML INJ. IVP PRN ×3 (08:31→13:46)
[2021-02-17 11:00] VITALS: BP 159/82
--- NOTE | 2021-02-17 11:43 | PDOC2 ---
GI CONSULT Date of Service: DATE: 02/17/21 TIME: 11:22 Reason For Consult: gastric volvulus HPI: HPI: History from family in room. 50 y/o female awoke w/ severe upper abdominal pain at 3:30 a.m. Prior to this, 1 month of upper abdominal "air pressure," feeling like she can't burp, and "tried to throw up but couldn't." He also gives h/o "bad acid reflux" and says "She couldn't even lay down" so apparently underwent Damaris fundoplication in [place] in 05/2020. Since then, no issues w/ reflux and off meds (though other notes mention use of omeprazole). He says she's never had pain like this before and they were told she needed surgery today. H/o chronic constipation controlled w/ Miralax. Has lost ~15 pounds since surgery, was going to the gym a lot. Requesting something to help w/ pain - I passed along to nurse. Office records reviewed: EGD for dysphagia 10/03/18: Schatzki's ring (dilated 54Fr), normal stomach, normal duodenum. At that time reflux was controlled w/ rabeprazole 20mg 1-2 PRN. Dysphagia was 50% improved after dilation. Recommendation to continue Aciphex and follow-up for dilation PRN. Colonoscopy for screening 10/03/18: two 4-6mm benign colonic mucosa polyps in hepatic flexure, a TVA and hyperplastic polyp in rectum, and internal hemorrhoids. Recommendation for colonoscopy in 3 years. EGD for dysphagia 08/09/[address] Randle: mild Schatzki's ring (dilated 54Fr), chronic gastritis (no biopsy), normal duodenum. Office visit from 01/03/20: noted w/ dyspahgia felt in upper esophagus (solids, choking sensation), also noted dry mouth and dry eyes. Recommendation for ERLIN and esophagram, possible rheumatology input. Cholelithiasis noted on imaging. PMH: PMH: see HPI per other notes: hypothyroid, DVT, tubal ligation, rotator cuff repair, breast augmentation FH: Family History: Cancer (esophagus/stomach - father), Hypertension Social History: Smoke: No ALCOHOL: occassional Drugs: None ROS: Difficult to obtain from pt - see HPI - she is quite uncomfortable during interview. Vitals: Vitals: Vital Signs Date Time Temp Pulse Resp B/P (MAP) Pulse Ox O2 Delivery O2 Flow Rate FiO2 02/17/21 09:48 66 177/99 (125) 100 Nasal Cannula 3.0 02/17/21 08:31 20 02/17/21 04:30 97.4 97.4 Labs: Labs: Laboratory Tests Test 02/17/21 04:30 02/17/21 06:10 02/17/21 07:35 White Blood Count 4.2 x10^3/uL (4.0-11.0) Red Blood Count 4.65 x10^6/uL (3.50-5.40) Hemoglobin 12.5 g/dL (12.0-15.5) Hematocrit 37.8 % (36.0-47.0) Mean Corpuscular Volume 81 fL (79-100) Mean Corpuscular Hemoglobin 27 pg (25-35) Mean Corpuscular Hemoglobin Concent 33 g/dL (31-37) Red Cell Distribution Width 14.6 % (11.5-14.5) Platelet Count 200 x10^3/uL (140-400) Neutrophils (%) (Auto) 38 % (31-73) Lymphocytes (%) (Auto) 43 % (24-48) Monocytes (%) (Auto) 12 % (0-9) Eosinophils (%) (Auto) 5 % (0-3) Basophils (%) (Auto) 1 % (0-3) Neutrophils # (Auto) 1.6 x10^3/uL (1.8-7.7) Lymphocytes # (Auto) 1.8 x10^3/uL (1.0-4.8) Monocytes # (Auto) 0.5 x10^3/uL (0.0-1.1) Eosinophils # (Auto) 0.2 x10^3/uL (0.0-0.7) Basophils # (Auto) 0.1 x10^3/uL (0.0-0.2) Sodium Level 139 mmol/L (136-145) Potassium Level 3.2 mmol/L (3.5-5.1) Chloride Level 102 mmol/L (98-107) Carbon Dioxide Level 23 mmol/L (21-32) Anion Gap 14 (6-14) Blood Urea Nitrogen 13 mg/dL (7-20) Creatinine 0.8 mg/dL (0.6-1.0) Estimated GFR (Cockcroft-Gault) 75.3 BUN/Creatinine Ratio 16 (6-20) Glucose Level 132 mg/dL (70-99) Lactic Acid Level 2.8 mmol/L (0.4-2.0) 2.7 mmol/L (0.4-2.0) Calcium Level 8.6 mg/dL (8.5-10.1) Magnesium Level 2.2 mg/dL (1.8-2.4) Total Bilirubin 0.3 mg/dL (0.2-1.0) Aspartate Amino Transf (AST/SGOT) 22 U/L (15-37) Alanine Aminotransferase (ALT/SGPT) 36 U/L (14-59) Alkaline Phosphatase 71 U/L (46-116) Creatine Kinase 123 U/L (26-192) Creatine Kinase MB (Mass) 0.6 ng/mL (0.0-3.6) Creatine Kinase MB Relative Index 0.5 % (0-4) Troponin I High Sensitivity 5 ng/L (4-50) Total Protein 7.7 g/dL (6.4-8.2) Albumin 3.7 g/dL (3.4-5.0) Albumin/Globulin Ratio 0.9 (1.0-1.7) Lipase 91 U/L (73-393) Ethyl Alcohol Level < 10 mg/dL (0-10) Urine Collection Type Unknown Urine Color Yellow Urine Clarity Clear Urine pH 7.5 (<5.0-8.0) Urine Specific [place] >=1.030 (1.000-1.030) Urine Protein Negative mg/dL (NEG-TRACE) Urine Glucose (UA) Negative mg/dL (NEG) Urine Ketones (Stick) Negative mg/dL (NEG) Urine Blood Negative (NEG) Urine Nitrite Negative (NEG) Urine Bilirubin Negative (NEG) Urine Urobilinogen Dipstick 0.2 mg/dL (0.2 mg/dL) Urine Leukocyte Esterase Negative (NEG) Urine RBC 0 /HPF (0-2) Urine WBC Occ /HPF (0-4) Urine Squamous Epithelial Cells Mod /LPF Urine Bacteria 0 /HPF (0-FEW) Allergies: Coded Allergies: No Known Drug Allergies (Unverified , 10/06/13) Medications: Current Medications Medications (Trade) Dose Ordered Sig/Carolyn Route PRN Reason Start Time Stop Time Status Last Admin Dose Admin Sodium Chloride 1,000 ml @ 1,000 mls/hr 1X ONCE IV 02/17/21 05:00 02/17/21 05:59 [place] 02/17/21 04:51 Famotidine (Pepcid Vial) 20 mg 1X ONCE IVP 02/17/21 05:00 02/17/21 05:01 [place] 02/17/21 04:52 Ondansetron HCl (Zofran) 4 mg 1X ONCE IVP 02/17/21 05:00 02/17/21 05:01 [place] 02/17/21 04:51 Fentanyl Citrate (Fentanyl 2ml Vial) 75 mcg 1X ONCE IV 02/17/21 05:00 02/17/21 05:01 [place] 02/17/21 04:51 Morphine Sulfate (Morphine Sulfate) 4 mg 1X ONCE IVP 02/17/21 06:00 02/17/21 06:01 [place] 02/17/21 05:23 Iohexol (Omnipaque 350 Mg/ml) 100 ml 1X ONCE IV 02/17/21 06:00 02/17/21 06:01 [place] 02/17/21 05:53 Hydromorphone HCl (Dilaudid) 0.5 mg 1X ONCE IVP 02/17/21 06:30 02/17/21 06:31 [place] 02/17/21 06:20 Labetalol HCl (Normodyne Iv Push) 10 mg 1X ONCE IVP 02/17/21 06:30 02/17/21 06:31 [place] 02/17/21 06:43 Hydromorphone HCl (Dilaudid) 0.5 mg 1X ONCE IVP 02/17/21 07:30 02/17/21 07:31 [place] 02/17/21 07:38 Sodium Chloride 1,000 ml @ 1,000 mls/hr 1X ONCE IV 02/17/21 07:30 02/17/21 08:29 [place] 02/17/21 07:38 Hydromorphone HCl (Dilaudid) 0.5 mg PRN Q2HRS PRN IVP PAIN 02/17/21 08:15 02/17/21 11:09 Sodium Chloride 1,000 ml @ 100 mls/hr 1X ONCE IV 02/17/21 08:15 02/17/21 18:14 02/17/21 08:15 Imaging: Imaging: CTA C/A/P IMPRESSION: 1. Large hiatal hernia with evidence of gastric volvulus. 2. Assessment of the aorta is very limited secondary to contrast timing. No dissection is detected. PE: GEN: uncomfortable, shifting positions frequently in bed HEENT: Atraumatic, PERRL LUNGS: NC 3L, diminished HEART: tachycardic ABD: quiet, diffuse abdominal discomfort to light touch EXTREMITY: No edema SKIN: No rashes, no jaundice NEURO/PSYCH: A & O 3 - spoke Frisian to significant other, also seems to understand [place] Citizen A/P: A/P: Abdominal pain - sudden onset overnight Lactic acidosis, hypokalemia Abnormal CT - large hiatal hernia, evidence of gastric volvulus H/o GERD and chronic dyspahgia, s/p Damaris fundoplication in [place] 05/2020 CRC screen, h/o TVA - due for screening 09/2021 Cholelithiasis -- D/w Dr. Randle who recommends surgical repair. SYL MEGLAR Feb 17, 2021 11:43
[2021-02-17] MEDS ORDERED: LEVO50CA3 PO (12:11)
[2021-02-17] MEDS ORDERED: IV RINGERS,LACTATED 1000ML 1,000 ML IV SCH (12:15)
[2021-02-17] MEDS ORDERED: HYDROmorphone 2 MG/ML INJ. IVP PRN (12:15)
[2021-02-17] MEDS ORDERED: fentaNYL PF VIAL 100 MCG/2 ML VIAL IVP PRN (12:15)
[2021-02-17] MEDS ORDERED: PROCHLORPERAZINE 10 MG/2 ML VIAL. IVP PRN (12:15)
--- NOTE | 2021-02-17 12:34 | NUR ---
Pt arrived on unit at 1025 by bed via ED staff. Pt rates pain 10/10 in abdomen, groaning and facial grimacing noted. Pt's IV noted to be swollen upon arrival, no pain noted. POC/orders reviewed. Tele monitor applied. Will assume care. Addendum: 02/17/21 at 1237 by KALLIE DECKER RN Admission question information obtained from pt and Fermín pt's .
--- NOTE | 2021-02-17 12:40 | HP ---
DATE OF SERVICE: 02/17/2021 ADMIT DATE: 02/17/2021 CHIEF COMPLAINT: Abdominal pain. HISTORY OF PRESENT ILLNESS: The patient is a pleasant 50-year-old female who had a large hiatal hernia and underwent a Damaris fundoplication in [place] in 05/2020. Now, she presents with abdominal pain. We did some imaging. She has got a gastric volvulus. I discussed the case with ER physician. We admitted the patient with consultation to GI and General Surgery. PAST MEDICAL HISTORY: The previous mentioned fundoplication, hypothyroidism, DVT, tubal ligation, rotator cuff repair, breast augmentation, pulmonary embolism. ALLERGIES: None. FAMILY HISTORY: Diabetes. SOCIAL HISTORY: She does not drink, smoke or take drugs. She is . MEDICATIONS: Reviewed. Please refer to the MRAD. REVIEW OF SYSTEMS: GENERAL: No history of weight change, weakness or fevers. SKIN: No bruising, hair changes or rashes. EYES: No blurred, double or loss of vision. NOSE AND THROAT: No history of nosebleeds, hoarseness or sore throat. HEART: No history of palpitations, chest pain or shortness of breath on exertion. LUNGS: Denies cough, hemoptysis, wheezing or shortness of breath. GASTROINTESTINAL: She complains of abdominal pain. GENITOURINARY: No history of frequency, urgency, hesitancy or nocturia. NEUROLOGIC: Denies history of numbness, tingling, tremor or weakness. PSYCHIATRIC: No history of panic, anxiety or depression. ENDOCRINE: No history of heat or cold intolerance, polyuria or polydipsia. EXTREMITIES: Denies muscle weakness, joint pain, pain on walking or stiffness. PHYSICAL EXAMINATION: VITALS: Within normal limits and are stable. GENERAL: No apparent distress. Alert and oriented. HEENT: Normal cephalic atraumatic, external auditory canals are patent. EYES: Extraocular muscles are intact, pupils are equally round and reactive to light and accommodation. MUSCULOSKELETAL: Well developed, well nourished, good range of motion. ENDOCRINE: No thyromegaly was palpated, LYMPHATICS: No cervical chain or axillary nodes were noted. HEMATOPOIETIC: No bruising. NECK: Supple, no JVD, no thyromegaly was noted. LUNGS: Clear to auscultation in all lung white without rhonchi or wheezing. HEART: RRR, S1, S2 present. Peripheral pulses intact, no obvious murmurs were noted. ABDOMEN: She has old trocar sites that have healed well. EXTREMITIES: Without any cyanosis, clubbing, or edema. Pedal pulses intact, Homans sign is negative. NEUROLOGIC: Normal speech, normal tone. A and O x 3, moves all extremities, no obvious focal deficits. PSYCHIATRIC: Normal affect, normal mood. Stable. SKIN: No ulcerations or rashes, good skin turgor, no jaundice. VASCULAR: Good capillary refill, neurovascular bundle appears to be intact. DIAGNOSTIC DATA: Hematology is normal. Electrolytes are normal. Troponin is negative. Urinalysis negative. Alcohol level is negative. CT of the abdomen showing a gastric volvulus. ASSESSMENT AND PLAN: Gastric volvulus. The patient has been admitted. We have consulted General Surgery and GI. IV fluids, home meds. DVT prophylaxis. Full code. P.r.n. Zofran, p.r.n. morphine. ASA/ANGELLA DR: Jorge TID: [id number]
--- NOTE | 2021-02-17 13:17 | PDOC2 ---
DANIELLE RUSSELL BILLIARD TABLE ASSEMBLER 02/17/21 1317: CONSULT Date of Consult Date of Consult DATE: 02/17/21 TIME: 13:09 Reason for Consult Reason for Consult: gastric volvulus Referring Physician Referring Physician: ER Identification/Chief Complaint Chief Complaint abdominal pain Source Source: Chart review, Patient History of Present Illness Reason for Visit: Here with severe acute onset upper abdominal pain started at 0330. Hx of surgery in [place] 05/2020 for her severe reflux symptoms, says unsure what surgery was but involved a wrap--fundoplication sounds familiar. Dry heaves. denies fevers. No similar pain in past Past Medical History Pulmonary: Pulmonary embolus GI: GERD Endocrine: Hypothyroidism Past Surgical History Past Surgical History: Tubal Ligation, Other (possible fundoplication ) Family History Family History: Other (noncontributory to current illness ) Social History No ALCOHOL: occassional Drugs: None Lives: with Family Current Problem List Problem List Problems Medical Problems: (1) Abdominal pain Status: Acute (2) Gastric volvulus Status: Acute (3) Hiatal hernia Status: Acute (4) Hypokalemia Status: Acute (5) Lactic acidosis Status: Acute Current Medications Current Medications Current Medications Sodium Chloride 1,000 ml @ 1,000 mls/hr 1X ONCE IV Last administered on 02/17/21at 04:51; Start 02/17/21 at 05:00; Stop 02/17/21 at 05:59; Status DC Famotidine (Pepcid Vial) 20 mg 1X ONCE IVP Last administered on 02/17/21at 04:52; Start 02/17/21 at 05:00; Stop 02/17/21 at 05:01; Status DC Ondansetron HCl (Zofran) 4 mg 1X ONCE IVP Last administered on 02/17/21at 04:51; Start 02/17/21 at 05:00; Stop 02/17/21 at 05:01; Status DC Fentanyl Citrate (Fentanyl 2ml Vial) 75 mcg 1X ONCE IV Last administered on 02/17/21at 04:51; Start 02/17/21 at 05:00; Stop 02/17/21 at 05:01; Status DC Morphine Sulfate (Morphine Sulfate) 4 mg 1X ONCE IVP Last administered on 02/17/21at 05:23; Start 02/17/21 at 06:00; Stop 02/17/21 at 06:01; Status DC Iohexol (Omnipaque 350 Mg/ml) 100 ml 1X ONCE IV Last administered on 02/17/21at 05:53; Start 02/17/21 at 06:00; Stop 02/17/21 at 06:01; Status DC Info (CONTRAST GIVEN -- Rx MONITORING) 1 each PRN DAILY PRN MC SEE COMMENTS; Start 02/17/21 at 06:00; Stop 02/19/21 at 05:59 Iohexol (Omnipaque 350 Mg/ml) 100 ml STK-MED ONCE .ROUTE ; Start 02/17/21 at 05:56; Stop 02/17/21 at 05:56; Status DC Hydromorphone HCl (Dilaudid) 0.5 mg 1X ONCE IVP Last administered on 02/17/21at 06:20; Start 02/17/21 at 06:30; Stop 02/17/21 at 06:31; Status DC Labetalol HCl (Normodyne Iv Push) 10 mg 1X ONCE IVP Last administered on 02/17/21at 06:43; Start 02/17/21 at 06:30; Stop 02/17/21 at 06:31; Status DC Hydromorphone HCl (Dilaudid) 0.5 mg 1X ONCE IVP Last administered on 02/17/21at 07:38; Start 02/17/21 at 07:30; Stop 02/17/21 at 07:31; Status DC Sodium Chloride 1,000 ml @ 1,000 mls/hr 1X ONCE IV Last administered on at 07:38; Start 02/17/21 at 07:30; Stop 02/17/21 at 08:29; Status DC Ondansetron HCl (Zofran) 4 mg PRN Q8HRS PRN IVP NAUSEA/VOMITING; Start 02/17/21 at 08:15; Stop 02/18/21 at 08:14 Hydromorphone HCl (Dilaudid) 0.5 mg PRN Q2HRS PRN IVP PAIN Last administered on 02/17/21at 11:09; Start 02/17/21 at 08:15 Sodium Chloride 1,000 ml @ 100 mls/hr 1X ONCE IV Last administered on 02/17/21at 08:15; Start 02/17/21 at 08:15; Stop 02/17/21 at 18:14 Fentanyl Citrate (Fentanyl 2ml Vial) 25 mcg PRN Q5MIN PRN IVP MILD PAIN 1-3; Start 02/17/21 at 12:15; Stop 02/18/21 at 12:14 Fentanyl Citrate (Fentanyl 2ml Vial) 50 mcg PRN Q5MIN PRN IVP MODERATE PAIN 4- 6; Start 02/17/21 at 12:15; Stop 02/18/21 at 12:14 Morphine Sulfate (Morphine Sulfate) 1 mg PRN Q10MIN PRN IVP SEVERE PAIN 7-10; Start 02/17/21 at 12:15; Stop 02/18/21 at 12:14 Ringer's Solution 1,000 ml @ 30 mls/hr Q24H IV ; Start 02/17/21 at 12:15; Stop 02/18/21 at 00:14 Hydromorphone HCl (Dilaudid) 0.5 mg PRN Q10MIN PRN IVP SEVERE PAIN 7-10, 2nd CHOICE; Start 02/17/21 at 12:15; Stop 02/18/21 at 12:14 Prochlorperazine Edisylate (Compazine) 5 mg PACU PRN PRN IVP NAUSEA, MRX1; Start 02/17/21 at 12:15; Stop 02/18/21 at 12:14 Active Scripts Active Reported Levothyroxine (Levothyroxine Sodium) 50 Mcg Capsule 50 Mcg PO DAILY Allergies Allergies: Coded Allergies: No Known Drug Allergies (Unverified , 10/06/13) ROS General: YES: Fatigue, Other (15 lb weight loss); No: Chills PSYCHOLOGICAL ROS: No: Anxiety, Depression Eyes: No Blurry vision, No Double vision HEENT: No: Sore Throat Hematological and Lymphatic: YES: Blood Clots (hx); No: Bleeding Problems Respiratory: No: Cough, Shortness of breath Cardiovascular: No Chest Pain, No Palpitations Gastrointestinal: Yes Other (see hpi) Genitourinary: No Dysuria, No Retention Musculoskeletal: No Joint Pain, No Muscle Pain Neurological: No Headaches, No Memory Loss Skin: No Pruritus, No Rash Physical Exam General: Alert, Cooperative, Other (acute pain on exam) HEENT: Atraumatic, PERRLA Lungs: Clear to auscultation, Normal air movement Heart: Regular rate, Normal S1, Normal S2 Abdomen: Soft, Other (lap scars noted, significant pain on exam) Extremities: No clubbing, No cyanosis Skin: No rashes, No breakdown Neuro: Normal gait, Normal speech Psych/Mental Status: Mental status NL, Mood NL MUSCULOSKELETAL: No deformity, No swelling Vitals VITALS Vital Signs Date Time Temp Pulse Resp B/P (MAP) Pulse Ox O2 Delivery O2 Flow Rate FiO2 02/17/21 11:24 Nasal Cannula 3.0 02/17/21 11:00 97.7 70 20 159/82 (107) 92 97.7 Labs Labs Laboratory Tests Test 02/17/21 04:30 02/17/21 06:10 02/17/21 07:35 White Blood Count 4.2 x10^3/uL (4.0-11.0) Red Blood Count 4.65 x10^6/uL (3.50-5.40) Hemoglobin 12.5 g/dL (12.0-15.5) Hematocrit 37.8 % (36.0-47.0) Mean Corpuscular Volume 81 fL (79-100) Mean Corpuscular Hemoglobin 27 pg (25-35) Mean Corpuscular Hemoglobin Concent 33 g/dL (31-37) Red Cell Distribution Width 14.6 % (11.5-14.5) Platelet Count 200 x10^3/uL (140-400) Neutrophils (%) (Auto) 38 % (31-73) Lymphocytes (%) (Auto) 43 % (24-48) Monocytes (%) (Auto) 12 % (0-9) Eosinophils (%) (Auto) 5 % (0-3) Basophils (%) (Auto) 1 % (0-3) Neutrophils # (Auto) 1.6 x10^3/uL (1.8-7.7) Lymphocytes # (Auto) 1.8 x10^3/uL (1.0-4.8) Monocytes # (Auto) 0.5 x10^3/uL (0.0-1.1) Eosinophils # (Auto) 0.2 x10^3/uL (0.0-0.7) Basophils # (Auto) 0.1 x10^3/uL (0.0-0.2) Sodium Level 139 mmol/L (136-145) Potassium Level 3.2 mmol/L (3.5-5.1) Chloride Level 102 mmol/L (98-107) Carbon Dioxide Level 23 mmol/L (21-32) Anion Gap 14 (6-14) Blood Urea Nitrogen 13 mg/dL (7-20) Creatinine 0.8 mg/dL (0.6-1.0) Estimated GFR (Cockcroft-Gault) 75.3 BUN/Creatinine Ratio 16 (6-20) Glucose Level 132 mg/dL (70-99) Lactic Acid Level 2.8 mmol/L (0.4-2.0) 2.7 mmol/L (0.4-2.0) Calcium Level 8.6 mg/dL (8.5-10.1) Magnesium Level 2.2 mg/dL (1.8-2.4) Total Bilirubin 0.3 mg/dL (0.2-1.0) Aspartate Amino Transf (AST/SGOT) 22 U/L (15-37) Alanine Aminotransferase (ALT/SGPT) 36 U/L (14-59) Alkaline Phosphatase 71 U/L (46-116) Creatine Kinase 123 U/L (26-192) Creatine Kinase MB (Mass) 0.6 ng/mL (0.0-3.6) Creatine Kinase MB Relative Index 0.5 % (0-4) Troponin I High Sensitivity 5 ng/L (4-50) Total Protein 7.7 g/dL (6.4-8.2) Albumin 3.7 g/dL (3.4-5.0) Albumin/Globulin Ratio 0.9 (1.0-1.7) Lipase 91 U/L (73-393) Ethyl Alcohol Level < 10 mg/dL (0-10) Urine Collection Type Unknown Urine Color Yellow Urine Clarity Clear Urine pH 7.5 (<5.0-8.0) Urine Specific [place] >=1.030 (1.000-1.030) Urine Protein Negative mg/dL (NEG-TRACE) Urine Glucose (UA) Negative mg/dL (NEG) Urine Ketones (Stick) Negative mg/dL (NEG) Urine Blood Negative (NEG) Urine Nitrite Negative (NEG) Urine Bilirubin Negative (NEG) Urine Urobilinogen Dipstick 0.2 mg/dL (0.2 mg/dL) Urine Leukocyte Esterase Negative (NEG) Urine RBC 0 /HPF (0-2) Urine WBC Occ /HPF (0-4) Urine Squamous Epithelial Cells Mod /LPF Urine Bacteria 0 /HPF (0-FEW) Laboratory Tests Test 02/17/21 04:30 02/17/21 06:10 02/17/21 07:35 White Blood Count 4.2 x10^3/uL (4.0-11.0) Red Blood Count 4.65 x10^6/uL (3.50-5.40) Hemoglobin 12.5 g/dL (12.0-15.5) Hematocrit 37.8 % (36.0-47.0) Mean Corpuscular Volume 81 fL (79-100) Mean Corpuscular Hemoglobin 27 pg (25-35) Mean Corpuscular Hemoglobin Concent 33 g/dL (31-37) Red Cell Distribution Width 14.6 % (11.5-14.5) Platelet Count 200 x10^3/uL (140-400) Neutrophils (%) (Auto) 38 % (31-73) Lymphocytes (%) (Auto) 43 % (24-48) Monocytes (%) (Auto) 12 % (0-9) Eosinophils (%) (Auto) 5 % (0-3) Basophils (%) (Auto) 1 % (0-3) Neutrophils # (Auto) 1.6 x10^3/uL (1.8-7.7) Lymphocytes # (Auto) 1.8 x10^3/uL (1.0-4.8) Monocytes # (Auto) 0.5 x10^3/uL (0.0-1.1) Eosinophils # (Auto) 0.2 x10^3/uL (0.0-0.7) Basophils # (Auto) 0.1 x10^3/uL (0.0-0.2) Sodium Level 139 mmol/L (136-145) Potassium Level 3.2 mmol/L (3.5-5.1) Chloride Level 102 mmol/L (98-107) Carbon Dioxide Level 23 mmol/L (21-32) Anion Gap 14 (6-14) Blood Urea Nitrogen 13 mg/dL (7-20) Creatinine 0.8 mg/dL (0.6-1.0) Estimated GFR (Cockcroft-Gault) 75.3 BUN/Creatinine Ratio 16 (6-20) Glucose Level 132 mg/dL (70-99) Lactic Acid Level 2.8 mmol/L (0.4-2.0) 2.7 mmol/L (0.4-2.0) Calcium Level 8.6 mg/dL (8.5-10.1) Magnesium Level 2.2 mg/dL (1.8-2.4) Total Bilirubin 0.3 mg/dL (0.2-1.0) Aspartate Amino Transf (AST/SGOT) 22 U/L (15-37) Alanine Aminotransferase (ALT/SGPT) 36 U/L (14-59) Alkaline Phosphatase 71 U/L (46-116) Creatine Kinase 123 U/L (26-192) Creatine Kinase MB (Mass) 0.6 ng/mL (0.0-3.6) Creatine Kinase MB Relative Index 0.5 % (0-4) Troponin I High Sensitivity 5 ng/L (4-50) Total Protein 7.7 g/dL (6.4-8.2) Albumin 3.7 g/dL (3.4-5.0) Albumin/Globulin Ratio 0.9 (1.0-1.7) Lipase 91 U/L (73-393) Ethyl Alcohol Level < 10 mg/dL (0-10) Urine Collection Type Unknown Urine Color Yellow Urine Clarity Clear Urine pH 7.5 (<5.0-8.0) Urine Specific [place] >=1.030 (1.000-1.030) Urine Protein Negative mg/dL (NEG-TRACE) Urine Glucose (UA) Negative mg/dL (NEG) Urine Ketones (Stick) Negative mg/dL (NEG) Urine Blood Negative (NEG) Urine Nitrite Negative (NEG) Urine Bilirubin Negative (NEG) Urine Urobilinogen Dipstick 0.2 mg/dL (0.2 mg/dL) Urine Leukocyte Esterase Negative (NEG) Urine RBC 0 /HPF (0-2) Urine WBC Occ /HPF (0-4) Urine Squamous Epithelial Cells Mod /LPF Urine Bacteria 0 /HPF (0-FEW) Assessment/Plan Assessment/Plan HH, gastric volvulus ng placement, tentatively plan for OR this afternoon ABBEY VILA MD 02/17/21 5403: CONSULT Assessment/Plan Assessment/Plan Pt seen and examined. Agree with Ms. Russell's note Pt with c/o severe epigastric pain, not significantly improved with NGT TO OR for laparoscopic versus open hiatal hernia repair and correction of gastric volvulus and gastropexy with G-tube. Urgent basis, given elevated lactic acid, obstruction and pain, given concern for decreased viability R/R/B/A d/w pt and pt's supportive . Risks, including, but not limited to: bleeding, infection, damage to surrounding structures, risk of anesthesia, risk of open, risk of recurrence, risk of need for gastrectomy. This is a potentially serious event with significant risk and needs urgent i ntervention, given gastric volvulus. Risks worsened by recent surgery. They appear to understand, their questions are answered and they elect to proceed. Thanks for consult! DANIELLE RUSSELL APRN Feb 17, 2021 13:17 ABBEY VILA MD Feb 17, 2021 14:37
[2021-02-17] MEDS ORDERED: BUPIVACAINE-EPI 0.5% 30 ML VIAL KIT. ONE (13:44)
[2021-02-17] MEDS ORDERED: PROPOFOL 10 MG/ML (20ML) VIAL. IV ONE (14:00)
[2021-02-17] MEDS ORDERED: PHENYLEPHRINE in 0.9% NACL PF 1 MG/10 ML SYRINGE. IV ONE (14:01)
[2021-02-17] MEDS ORDERED: DESFLURANE 61 TO 120 MINUTES IH ONE (14:01)
[2021-02-17] MEDS ORDERED: LIDOCAINE 2% PF 5 ML VIAL. ONE (14:01)
[2021-02-17] MEDS ORDERED: ROCURONIUM 50 MG/5 ML VIAL. ONE (14:02)
--- NOTE | 2021-02-17 14:03 | RAD ---
EXAM: Abdomen, single view. HISTORY: Nasogastric tube placement. COMPARISON: None. FINDINGS: A frontal view of the abdomen is obtained. There is a nasogastric tube within the proximal stomach. The side-port is in the distal esophagus. There is a moderate hiatal hernia. There is elevat ion of the left hemidiaphragm. There is bilateral lower lobe interstitial infiltrate or atelectasis. There is a nonobstructive bowel gas pattern. IMPRESSION: 1. Nasogastric tube within the proximal stomach. The side-port is likely within the distal esophagus. The superimposed on a moderate hiatal hernia and elevation of the left hemidiaphragm. 2. Bilateral lower lobe airspace disease. 3. Nonobstructive bowel gas pattern. Electronically signed by: Claire Burnette MD (02/17/2021 2:00 PM) [id number]
[2021-02-17] MEDS ORDERED: cefOXitin SODIUM IV Push 2 GM VIAL. IVP ONE (14:45)
[2021-02-17] MEDS ORDERED: fentaNYL PF VIAL 100 MCG/2 ML VIAL ONE ×2 (15:42→18:33)
[2021-02-17] MEDS ORDERED: ALBUMIN HUMAN 5% 500 ML IV ONE (16:06)
[2021-02-17 16:31] LABS: BASO % 0 % (0-3); EOS % 0 % (0-3); HEMATOCRIT 34.6 % (36.0-47.0); HEMOGLOBIN 10.9 g/dL (12.0-15.5); LYMPH # 0.6 x10^3/uL (1.0-4.8); LYMPH % 4 % (24-48); MEAN CORPUSCULAR HEMOGLOBIN 26 pg (25-35); MEAN CORPUSCULAR HGB CONC 31 g/dL (31-37); MEAN CORPUSCULAR VOLUME 82 fL (79-100); MONO # 0.7 x10^3/uL (0.0-1.1); MONO % 5 % (0-9); NEUT # 14.1 x10^3/uL (1.8-7.7); NEUT % 91 % (31-73); PLATELET COUNT 196 x10^3/uL (140-400); RED BLOOD COUNT 4.21 x10^6/uL (3.50-5.40); RED CELL DISTRIBUTION WIDTH 14.6 % (11.5-14.5); WHITE BLOOD COUNT 15.5 x10^3/uL (4.0-11.0)
[2021-02-17] MEDS ORDERED: ROCURONIUM 100 MG/10 ML VIAL. ONE (16:40)
[2021-02-17] MEDS ORDERED: GLYCOPYRROLATE 1 MG/5 ML VIAL. ONE ×2 (17:28)
[2021-02-17] MEDS ORDERED: HYDROmorphone 2 MG/ML INJ. ONE ×2 (17:38→19:56)
[2021-02-17] MEDS ORDERED: MORPHINE SULFATE 2 MG/ML INJ. ONE (18:34)
[2021-02-17] MEDS: fentaNYL PF VIAL 100 MCG/2 ML VIAL IVP PRN ×2 (18:41→19:05)
[2021-02-17] MEDS: MORPHINE SULFATE 2 MG/ML INJ. IVP PRN ×2 (18:42→19:05)
[2021-02-17 19:11] LABS: % BANDS 15 % (0-9); % LYMPHS 2 % (24-48); % MONOS 4 % (0-10); % SEGS 79 % (35-66); PLT ESTIMATE ADEQUATE (ADEQUATE)
[2021-02-17 20:00] VITALS: BP 176/83
[2021-02-17] MEDS ORDERED: NALOXONE 0.4 MG/ML VIAL. IV PRN (20:00)
[2021-02-17] MEDS ORDERED: MORPHINE SULFATE 30 ML IV PRN (20:00)
[2021-02-17] MEDS ORDERED: 0.9 % SODIUM CHLORIDE 10 ML DISP.SYRIN. IV PRN (20:00)
--- NOTE | 2021-02-17 20:34 | PDOC4 ---
OPERATIVE NOTE Date: Date: Feb 17, 2021 Pre-Op Diagnosis: Gastric volvulus Post-Op Diagnosis: same Procedure Performed: laparoscopic converted to open exploration, reduction of gastric volvulus, repair of diaphragmatic hernia, left chest tube placement, G-tube placement Surgeon: Ronaldo Vila Anesthesia Type: GETA plus local Blood Loss: 800 Specimans Obtained: none Findings: incarcerated stomach in diaphragmatic hernia (not hiatal) with extensive vascular compromise, no obvious hernia sac, viable stomach after reduction, normal GE junction, normal liver and gallbladder Complications: none Operative Note: After obtaining informed consent, patient was taken to OR, induced under GETA and prepped in the usual fashion. 5 mm ports placed umbilical and epigastric, 12 port placed LUQ, all under laparoscopic guidance. Abdominal cavity was explored and normal except as above. Attempts at reducing volvulus was not successful. Left diaphragm appeared to bulge. Given this, open procedure in dicated. Upper midline incision made with cautery. Further attempts at manual reduction was not successful. Careful additional opening of hernia was made with cautery anteriorly. This allowed reduction of stomach. This was noted to be ecchymotic and large amount of the EBL was obtained via the hiatus, which appeared to be venous bleeding from stomach. Stomach appeared vascular compromised, but improved during case and appeared viable. Stomach appeared to be adjacent to lung via a diaphragmatic defect. 28 Frisian tube placed LUQ under direct palpation and diaphragmatic defect repaired with multiple 0 vicryl. The esophageal hiatus did not appear to have any defect. Stomach was anchored to LUQ via previous 12 port site with 20 F G tube, placed through 3 0 vicryl pursestring in stomach and tacked to abdominal wall with 3 0 vicryl. Copious irrigation. No evidence of bleeding or other pathology. Stomach appeared to have partial wrap and the greater curvature had been taken down. Fascia repaired with 0 looped PDS. Skin repaired with 3 0 vicryl and 4 0 monocryl. G-tube and chest tube secured with 2 0 nylon. Dressings placed. Patient tolerate procedure well and sent to ICU in stable condition. All counts correct. Wound class is 3. ABBEY VILA MD Feb 17, 2021 20:34
[2021-02-17] MEDS: IV RINGERS,LACTATED 1000ML 1,000 ML IV SCH (20:55)
[2021-02-17] MEDS: IV NORMAL SALINE 1000ML BAG 1,000 ML IV SCH (20:56)
[2021-02-17 21:00] VITALS: BP 154/77
[2021-02-17] MEDS: FAMOTIDINE 20 MG/2 ML VIAL IVP SCH (21:30)
[2021-02-17] MEDS: ENOXAPARIN 40 MG/0.4 ML SYRINGE. SQ SCH (21:31)
[2021-02-17 22:00] VITALS: BP 154/77
[2021-02-17 23:00] VITALS: BP 151/81
[2021-02-18] VITALS (25 sets, daily range): BP systolic 132–162; BP diastolic 51–86
--- NOTE | 2021-02-18 04:40 | RAD ---
EXAM: 1. Chest one view. 2. Abdomen one view. HISTORY: Postoperative, exploratory laparotomy. COMPARISON: None. FINDINGS: A nasogastric tube has its tip in the gastric body. There is a chest tube in the left base. There is no appreciable pneumothorax. There is a small right pleural effusion. Interstitial opacitie s in both bases are consistent with atelectasis and mild pulmonary edema. The heart is mildly enlarge d. There are no distended small bowel loops. A gastrostomy catheter is in place. There is gas distally. IMPRESSION: 1. Mild pulmonary edema. Mild cardiomegaly. 2. No evidence of obstruction. Electronically signed by: Trice Álvarez MD (02/18/2021 4:37 AM) [id number]
[2021-02-18 06:33] LABS: BASO % 0 % (0-3); EOS % 0 % (0-3); HEMATOCRIT 33.7 % (36.0-47.0); HEMOGLOBIN 10.9 g/dL (12.0-15.5); LYMPH # 1.1 x10^3/uL (1.0-4.8); LYMPH % 12 % (24-48); MEAN CORPUSCULAR HEMOGLOBIN 27 pg (25-35); MEAN CORPUSCULAR HGB CONC 32 g/dL (31-37); MEAN CORPUSCULAR VOLUME 82 fL (79-100); MONO # 0.7 x10^3/uL (0.0-1.1); MONO % 8 % (0-9); NEUT # 6.8 x10^3/uL (1.8-7.7); NEUT % 79 % (31-73); PLATELET COUNT 179 x10^3/uL (140-400); RED BLOOD COUNT 4.09 x10^6/uL (3.50-5.40); RED CELL DISTRIBUTION WIDTH 14.7 % (11.5-14.5); WHITE BLOOD COUNT 8.6 x10^3/uL (4.0-11.0)
[2021-02-18 07:01] LABS: CALCIUM 8.5 mg/dL (8.5-10.1); CREATININE 0.7 mg/dL (0.6-1.0); GFR 87.9; POTASSIUM 4.4 mmol/L (3.5-5.1)
[2021-02-18] MEDS: IV RINGERS,LACTATED 1000ML 1,000 ML IV SCH ×2 (07:35→16:40)
[2021-02-18] MEDS: FAMOTIDINE 20 MG/2 ML VIAL IVP SCH ×2 (09:03→21:02)
--- NOTE | 2021-02-18 10:17 | PDOC ---
Date of Service: DATE: 02/18/21 TIME: 10:13 Subjective: Subjective: Pain "okay." Objective: Objective: D/w nurse - NG removed, not using COAT OPERATOR much, possibly out of ICU tomorrow. Vital Signs: Vital Signs Date Time Temp Pulse Resp B/P (MAP) Pulse Ox O2 Delivery O2 Flow Rate FiO2 02/18/21 09:03 95 20 142/79 (100) 96 Room Air 02/18/21 07:00 99.0 99.0 02/18/21 05:00 2.0 Labs: Laboratory Tests Test 02/17/21 13:37 02/17/21 16:20 02/18/21 05:20 SARS-CoV-2 Antigen (Rapid) Negative White Blood Count 15.5 x10^3/uL 8.6 x10^3/uL Red Blood Count 4.21 x10^6/uL 4.09 x10^6/uL Hemoglobin 10.9 g/dL 10.9 g/dL Hematocrit 34.6 % 33.7 % Mean Corpuscular Volume 82 fL 82 fL Mean Corpuscular Hemoglobin 26 pg 27 pg Mean Corpuscular Hemoglobin Concent 31 g/dL 32 g/dL Red Cell Distribution Width 14.6 % 14.7 % Platelet Count 196 x10^3/uL 179 x10^3/uL Neutrophils (%) (Auto) 91 % 79 % Lymphocytes (%) (Auto) 4 % 12 % Monocytes (%) (Auto) 5 % 8 % Eosinophils (%) (Auto) 0 % 0 % Basophils (%) (Auto) 0 % 0 % Neutrophils # (Auto) 14.1 x10^3/uL 6.8 x10^3/uL Lymphocytes # (Auto) 0.6 x10^3/uL 1.1 x10^3/uL Monocytes # (Auto) 0.7 x10^3/uL 0.7 x10^3/uL Eosinophils # (Auto) 0.0 x10^3/uL 0.0 x10^3/uL Basophils # (Auto) 0.0 x10^3/uL 0.0 x10^3/uL Segmented Neutrophils % 79 % Band Neutrophils % 15 % Lymphocytes % 2 % Monocytes % 4 % Platelet Estimate Adequate Large Platelets Few Sodium Level 136 mmol/L Potassium Level 4.4 mmol/L Chloride Level 101 mmol/L Carbon Dioxide Level 27 mmol/L Anion Gap 8 Blood Urea Nitrogen 6 mg/dL Creatinine 0.7 mg/dL Estimated GFR (Cockcroft-Gault) 87.9 Glucose Level 122 mg/dL Calcium Level 8.5 mg/dL Imaging: KUB 02/17 IMPRESSION: 1. Nasogastric tube within the proximal stomach. The side-port is likely within the distal esophagus. The superimposed on a moderate hiatal hernia and elevation of the left hemidiaphragm. 2. Bilateral lower lobe airspace disease. 3. Nonobstructive bowel gas pattern. CXR 02/17 IMPRESSION: 1. Mild pulmonary edema. Mild cardiomegaly. 2. No evidence of obstruction. Procedure Performed: laparoscopic converted to open exploration, reduction of gastric volvulus, repair of diaphragmatic hernia, left chest tube placement, G-tube placement Findings: incarcerated stomach in diaphragmatic hernia (not hiatal) with extensive vascular compromise, no obvious hernia sac, viable stomach after reduction, normal GE junction, normal liver and gallbladder PE: GEN: NAD, family present - pt winces when shifting in bed LUNGS: CTAB HEART: RRR ABD: soft NEURO/PSYCH: A & O 3 A/P: S/p reduction of gastric volvulus, repair of diaphragmatic hernia, chest and G tube placement -- Continue per surgery. Justicifation of Admission Dx: Justifications for Admission: Justification of Admission Dx: Yes SYL MELGAR Feb 18, 2021 10:17
--- NOTE | 2021-02-18 10:50 | PDOC ---
[facility] PROGRESS NOTE Date of Service DOS: DATE: 02/18/21 TIME: 10:42 Chief Complaint Chief Complaint Acute abdominal pain secondary to gastric volvulus status post laparoscopic converted to open laparotomy with gastric volvulus reduction, diaphragmatic hernia repair, left chest tube placement and G-tube placement Plan for NGT removal. Continue IV fluids Morphine SHIP/REC/DOC CONTROL for pain control History of Present Illness History of Present Illness 50-year-old female who had a large hiatal hernia and underwent a Damaris fundoplication in [place] in 05/2020. Now, she presents with abdominal pain. We did some imaging. She has got a gastric volvulus. I discussed the case with ER physician. We admitted the patient with consultation to GI and General Surgery. 02/18/2021 Patient seen and examined bedside. NG tube to LI WS doing well. Pain is well controlled with morphine SHIP/REC/DOC CONTROL. Patient's chart, labs, images were reviewed and discussed with RN Vitals/I&O Vitals/I&O: Vital Signs Date Time Temp Pulse Resp B/P (MAP) Pulse Ox O2 Delivery O2 Flow Rate FiO2 02/18/21 10:13 99.1 88 18 137/66 (89) 96 Room Air 99.1 02/18/21 05:00 2.0 I & O 02/17/21 02/17/21 02/18/21 15:00 23:00 07:00 Intake Total 1000 ml 3900 ml 992.01 ml Output Total 1634 ml 1570 ml Balance 1000 ml 2266 ml -577.99 ml Physical Exam General: Alert, Cooperative, Other (acute pain on exam) Heart: Regular rate, Normal S1, Normal S2 Abdomen: Soft, Other (lap scars noted, significant pain on exam) Extremities: No clubbing, No cyanosis Skin: No rashes, No breakdown Labs Labs: Laboratory Tests Test 02/17/21 13:37 02/17/21 16:20 02/18/21 05:20 SARS-CoV-2 Antigen (Rapid) Negative (NEGATIVE) White Blood Count 15.5 x10^3/uL (4.0-11.0) 8.6 x10^3/uL (4.0-11.0) Red Blood Count 4.21 x10^6/uL (3.50-5.40) 4.09 x10^6/uL (3.50-5.40) Hemoglobin 10.9 g/dL (12.0-15.5) 10.9 g/dL (12.0-15.5) Hematocrit 34.6 % (36.0-47.0) 33.7 % (36.0-47.0) Mean Corpuscular Volume 82 fL (79-100) 82 fL (79-100) Mean Corpuscular Hemoglobin 26 pg (25-35) 27 pg (25-35) Mean Corpuscular Hemoglobin Concent 31 g/dL (31-37) 32 g/dL (31-37) Red Cell Distribution Width 14.6 % (11.5-14.5) 14.7 % (11.5-14.5) Platelet Count 196 x10^3/uL (140-400) 179 x10^3/uL (140-400) Neutrophils (%) (Auto) 91 % (31-73) 79 % (31-73) Lymphocytes (%) (Auto) 4 % (24-48) 12 % (24-48) Monocytes (%) (Auto) 5 % (0-9) 8 % (0-9) Eosinophils (%) (Auto) 0 % (0-3) 0 % (0-3) Basophils (%) (Auto) 0 % (0-3) 0 % (0-3) Neutrophils # (Auto) 14.1 x10^3/uL (1.8-7.7) 6.8 x10^3/uL (1.8-7.7) Lymphocytes # (Auto) 0.6 x10^3/uL (1.0-4.8) 1.1 x10^3/uL (1.0-4.8) Monocytes # (Auto) 0.7 x10^3/uL (0.0-1.1) 0.7 x10^3/uL (0.0-1.1) Eosinophils # (Auto) 0.0 x10^3/uL (0.0-0.7) 0.0 x10^3/uL (0.0-0.7) Basophils # (Auto) 0.0 x10^3/uL (0.0-0.2) 0.0 x10^3/uL (0.0-0.2) Segmented Neutrophils % 79 % (35-66) Band Neutrophils % 15 % (0-9) Lymphocytes % 2 % (24-48) Monocytes % 4 % (0-10) Platelet Estimate Adequate (ADEQUATE) Large Platelets Few Sodium Level 136 mmol/L (136-145) Potassium Level 4.4 mmol/L (3.5-5.1) Chloride Level 101 mmol/L (98-107) Carbon Dioxide Level 27 mmol/L (21-32) Anion Gap 8 (6-14) Blood Urea Nitrogen 6 mg/dL (7-20) Creatinine 0.7 mg/dL (0.6-1.0) Estimated GFR (Cockcroft-Gault) 87.9 Glucose Level 122 mg/dL (70-99) Calcium Level 8.5 mg/dL (8.5-10.1) Assessment and Plan Assessmemt and Plan Problems Medical Problems: (1) Abdominal pain Status: Acute (2) Gastric volvulus Status: Acute (3) Hiatal hernia Status: Acute (4) Hypokalemia Status: Acute (5) Lactic acidosis Status: Acute Comment Review of Relevant I have reviewed the following items boogie (where applicable) has been applied. Medications: Current Medications Medications (Trade) Dose Ordered Sig/Carolyn Route PRN Reason Start Time Stop Time Status Last Admin Dose Admin Fentanyl Citrate (Fentanyl 2ml Vial) 50 mcg PRN Q5MIN PRN IVP MODERATE PAIN 4-6 02/17/21 12:15 02/18/21 12:14 02/17/21 19:05 Morphine Sulfate (Morphine Sulfate) 1 mg PRN Q10MIN PRN IVP SEVERE PAIN 7-10 02/17/21 12:15 02/18/21 12:14 02/17/21 19:05 Hydromorphone HCl (Dilaudid) 0.5 mg PRN Q10MIN PRN IVP SEVERE PAIN 7-10, 2nd CHOICE 02/17/21 12:15 02/18/21 12:14 02/17/21 19:59 Bupivacaine HCl/ Epinephrine Bitart (Sensorcain-Epi 0.5% Kit) 30 ml STK-MED ONCE .ROUTE 02/17/21 13:44 02/17/21 13:44 DC 02/17/21 15:40 Cefoxitin Sodium (Mefoxin) 2 gm 1X PERIOP ONCE IVP 02/17/21 14:45 02/17/21 14:46 DC 02/17/21 14:55 Famotidine (Pepcid Vial) 20 mg BID IVP 02/17/21 21:00 02/18/21 09:03 Enoxaparin Sodium (Lovenox 40mg Syringe) 40 mg Q24H SQ 02/17/21 20:00 02/17/21 21:31 Ringer's Solution 1,000 ml @ 100 mls/hr Q10H IV 02/17/21 20:00 02/18/21 07:35 Sodium Chloride 1,000 ml @ 25 mls/hr Q24H IV 02/17/21 20:00 02/17/21 20:56 Morphine Sulfate 30 ml @ 0 mls/hr CONT PRN PRN IV PER PROTOCOL 02/17/21 20:00 02/17/21 20:58 Justifications for Admission Other Justification MARIA D LOPEZ MD Feb 18, 2021 10:50
--- NOTE | 2021-02-18 15:54 | NUR ---
CONVICT GUARD increased to 1mg every 10 min. Pt states pain is 10/10.
--- NOTE | 2021-02-18 16:30 | NUR ---
SS following for discharge planning. SS reviewed pt chart and discussed with pt RN. Pt is from home with spouse and is currently on room air. COVID19 negative. Pt had surgery on 02/17/2021 for Gastric Volvulus and Hernia. G-tube and left chest tube in place. SS will continue to follow for discharge planning.
--- NOTE | 2021-02-18 18:43 | PDOC ---
SURGICAL PROGRESS NOTE DATE: 02/18/21 TIME: 18:41 Subjective Pt seen earlier in the day, c/o incisional pain, but improved over preop, min NGT output Vital Signs Vital Signs Date Time Temp Pulse Resp B/P (MAP) Pulse Ox O2 Delivery O2 Flow Rate FiO2 02/18/21 18:11 95 145/80 (101) 98 Room Air 02/18/21 16:00 20 02/18/21 15:00 98.8 98.8 02/18/21 05:00 2.0 I&O Intake and Output 02/18/21 06:59 Intake Total 6892.01 ml Output Total 3204 ml Balance 3688.01 ml Intake IV Total 6892.01 ml Output Urine Total 1870 ml Gastric Drainage Total 175 ml Chest Tube Drainage Total 259 ml Drainage Total 0 ml Estimated Blood Loss 900 ml PATIENT HAS A ARAIZA: Yes General: Alert, Oriented X3, Cooperative, mild distress Abdomen: Soft, Other (appropriate TTP, Left CT in place, serosang drainage, G- tube in place) Labs Laboratory Tests Test 02/17/21 04:30 02/17/21 06:10 02/17/21 07:35 02/17/21 13:37 White Blood Count 4.2 x10^3/uL (4.0-11.0) Red Blood Count 4.65 x10^6/uL (3.50-5.40) Hemoglobin 12.5 g/dL (12.0-15.5) Hematocrit 37.8 % (36.0-47.0) Mean Corpuscular Volume 81 fL (79-100) Mean Corpuscular Hemoglobin 27 pg (25-35) Mean Corpuscular Hemoglobin Concent 33 g/dL (31-37) Red Cell Distribution Width 14.6 % (11.5-14.5) Platelet Count 200 x10^3/uL (140-400) Neutrophils (%) (Auto) 38 % (31-73) Lymphocytes (%) (Auto) 43 % (24-48) Monocytes (%) (Auto) 12 % (0-9) Eosinophils (%) (Auto) 5 % (0-3) Basophils (%) (Auto) 1 % (0-3) Neutrophils # (Auto) 1.6 x10^3/uL (1.8-7.7) Lymphocytes # (Auto) 1.8 x10^3/uL (1.0-4.8) Monocytes # (Auto) 0.5 x10^3/uL (0.0-1.1) Eosinophils # (Auto) 0.2 x10^3/uL (0.0-0.7) Basophils # (Auto) 0.1 x10^3/uL (0.0-0.2) Sodium Level 139 mmol/L (136-145) Potassium Level 3.2 mmol/L (3.5-5.1) Chloride Level 102 mmol/L (98-107) Carbon Dioxide Level 23 mmol/L (21-32) Anion Gap 14 (6-14) Blood Urea Nitrogen 13 mg/dL (7-20) Creatinine 0.8 mg/dL (0.6-1.0) Estimated GFR (Cockcroft-Gault) 75.3 BUN/Creatinine Ratio 16 (6-20) Glucose Level 132 mg/dL (70-99) Lactic Acid Level 2.8 mmol/L (0.4-2.0) 2.7 mmol/L (0.4-2.0) Calcium Level 8.6 mg/dL (8.5-10.1) Magnesium Level 2.2 mg/dL (1.8-2.4) Total Bilirubin 0.3 mg/dL (0.2-1.0) Aspartate Amino Transf (AST/SGOT) 22 U/L (15-37) Alanine Aminotransferase (ALT/SGPT) 36 U/L (14-59) Alkaline Phosphatase 71 U/L (46-116) Creatine Kinase 123 U/L (26-192) Creatine Kinase MB (Mass) 0.6 ng/mL (0.0-3.6) Creatine Kinase MB Relative Index 0.5 % (0-4) Troponin I High Sensitivity 5 ng/L (4-50) Total Protein 7.7 g/dL (6.4-8.2) Albumin 3.7 g/dL (3.4-5.0) Albumin/Globulin Ratio 0.9 (1.0-1.7) Lipase 91 U/L (73-393) Ethyl Alcohol Level < 10 mg/dL (0-10) Urine Collection Type Unknown Urine Color Yellow Urine Clarity Clear Urine pH 7.5 (<5.0-8.0) Urine Specific [place] >=1.030 (1.000-1.030) Urine Protein Negative mg/dL (NEG-TRACE) Urine Glucose (UA) Negative mg/dL (NEG) Urine Ketones (Stick) Negative mg/dL (NEG) Urine Blood Negative (NEG) Urine Nitrite Negative (NEG) Urine Bilirubin Negative (NEG) Urine Urobilinogen Dipstick 0.2 mg/dL (0.2 mg/dL) Urine Leukocyte Esterase Negative (NEG) Urine RBC 0 /HPF (0-2) Urine WBC Occ /HPF (0-4) Urine Squamous Epithelial Cells Mod /LPF Urine Bacteria 0 /HPF (0-FEW) SARS-CoV-2 Antigen (Rapid) Negative (NEGATIVE) Test 02/17/21 16:20 02/18/21 05:20 White Blood Count 15.5 x10^3/uL (4.0-11.0) 8.6 x10^3/uL (4.0-11.0) Red Blood Count 4.21 x10^6/uL (3.50-5.40) 4.09 x10^6/uL (3.50-5.40) Hemoglobin 10.9 g/dL (12.0-15.5) 10.9 g/dL (12.0-15.5) Hematocrit 34.6 % (36.0-47.0) 33.7 % (36.0-47.0) Mean Corpuscular Volume 82 fL (79-100) 82 fL (79-100) Mean Corpuscular Hemoglobin 26 pg (25-35) 27 pg (25-35) Mean Corpuscular Hemoglobin Concent 31 g/dL (31-37) 32 g/dL (31-37) Red Cell Distribution Width 14.6 % (11.5-14.5) 14.7 % (11.5-14.5) Platelet Count 196 x10^3/uL (140-400) 179 x10^3/uL (140-400) Neutrophils (%) (Auto) 91 % (31-73) 79 % (31-73) Lymphocytes (%) (Auto) 4 % (24-48) 12 % (24-48) Monocytes (%) (Auto) 5 % (0-9) 8 % (0-9) Eosinophils (%) (Auto) 0 % (0-3) 0 % (0-3) Basophils (%) (Auto) 0 % (0-3) 0 % (0-3) Neutrophils # (Auto) 14.1 x10^3/uL (1.8-7.7) 6.8 x10^3/uL (1.8-7.7) Lymphocytes # (Auto) 0.6 x10^3/uL (1.0-4.8) 1.1 x10^3/uL (1.0-4.8) Monocytes # (Auto) 0.7 x10^3/uL (0.0-1.1) 0.7 x10^3/uL (0.0-1.1) Eosinophils # (Auto) 0.0 x10^3/uL (0.0-0.7) 0.0 x10^3/uL (0.0-0.7) Basophils # (Auto) 0.0 x10^3/uL (0.0-0.2) 0.0 x10^3/uL (0.0-0.2) Segmented Neutrophils % 79 % (35-66) Band Neutrophils % 15 % (0-9) Lymphocytes % 2 % (24-48) Monocytes % 4 % (0-10) Platelet Estimate Adequate (ADEQUATE) Large Platelets Few Sodium Level 136 mmol/L (136-145) Potassium Level 4.4 mmol/L (3.5-5.1) Chloride Level 101 mmol/L (98-107) Carbon Dioxide Level 27 mmol/L (21-32) Anion Gap 8 (6-14) Blood Urea Nitrogen 6 mg/dL (7-20) Creatinine 0.7 mg/dL (0.6-1.0) Estimated GFR (Cockcroft-Gault) 87.9 Glucose Level 122 mg/dL (70-99) Calcium Level 8.5 mg/dL (8.5-10.1) Laboratory Tests Test 02/18/21 05:20 White Blood Count 8.6 x10^3/uL (4.0-11.0) Red Blood Count 4.09 x10^6/uL (3.50-5.40) Hemoglobin 10.9 g/dL (12.0-15.5) Hematocrit 33.7 % (36.0-47.0) Mean Corpuscular Volume 82 fL (79-100) Mean Corpuscular Hemoglobin 27 pg (25-35) Mean Corpuscular Hemoglobin Concent 32 g/dL (31-37) Red Cell Distribution Width 14.7 % (11.5-14.5) Platelet Count 179 x10^3/uL (140-400) Neutrophils (%) (Auto) 79 % (31-73) Lymphocytes (%) (Auto) 12 % (24-48) Monocytes (%) (Auto) 8 % (0-9) Eosinophils (%) (Auto) 0 % (0-3) Basophils (%) (Auto) 0 % (0-3) Neutrophils # (Auto) 6.8 x10^3/uL (1.8-7.7) Lymphocytes # (Auto) 1.1 x10^3/uL (1.0-4.8) Monocytes # (Auto) 0.7 x10^3/uL (0.0-1.1) Eosinophils # (Auto) 0.0 x10^3/uL (0.0-0.7) Basophils # (Auto) 0.0 x10^3/uL (0.0-0.2) Sodium Level 136 mmol/L (136-145) Potassium Level 4.4 mmol/L (3.5-5.1) Chloride Level 101 mmol/L (98-107) Carbon Dioxide Level 27 mmol/L (21-32) Anion Gap 8 (6-14) Blood Urea Nitrogen 6 mg/dL (7-20) Creatinine 0.7 mg/dL (0.6-1.0) Estimated GFR (Cockcroft-Gault) 87.9 Glucose Level 122 mg/dL (70-99) Calcium Level 8.5 mg/dL (8.5-10.1) Problem List Problems Medical Problems: (1) Abdominal pain Status: Acute (2) Gastric volvulus Status: Acute (3) Hiatal hernia Status: Acute (4) Hypokalemia Status: Acute (5) Lactic acidosis Status: Acute Assessment/Plan s/p diaphragmatic hernia repair NGT d/c'ed cont G-tube and CT cont supportive care Justicifation of Admission Dx: Justifications for Admission: Justification of Admission Dx: Yes ABBEY VILA MD Feb 18, 2021 18:43
[2021-02-18] MEDS: IV NORMAL SALINE 1000ML BAG 1,000 ML IV SCH (20:00)
[2021-02-18] MEDS: ENOXAPARIN 40 MG/0.4 ML SYRINGE. SQ SCH (21:02)
[2021-02-19] VITALS (12 sets, daily range): BP systolic 122–152; BP diastolic 69–84
[2021-02-19] MEDS: IV RINGERS,LACTATED 1000ML 1,000 ML IV SCH ×3 (02:00→22:49)
[2021-02-19] MEDS: FAMOTIDINE 20 MG/2 ML VIAL IVP SCH ×2 (09:37→22:50)
[2021-02-19] MEDS: IV NORMAL SALINE 1000ML BAG 1,000 ML IV SCH (12:38)
--- NOTE | 2021-02-19 14:12 | PDOC ---
[employer] PROGRESS NOTE Date of Service DOS: DATE: 02/19/21 TIME: 14:10 Chief Complaint Chief Complaint Acute abdominal pain secondary to gastric volvulus status post laparoscopic converted to open laparotomy with gastric volvulus reduction, diaphragmatic hernia repair, left chest tube placement and G-tube placement Out of bed to chair Diet per surgery Continue IV fluids Morphine TOBACCO SAMPLER for pain control History of Present Illness History of Present Illness 50-year-old female who had a large hiatal hernia and underwent a Damaris fundoplication in [place] in 05/2020. Now, she presents with abdominal pain. We did some imaging. She has got a gastric volvulus. I discussed the case with ER physician. We admitted the patient with consultation to GI and General Surgery. 02/18/2021 Patient seen and examined bedside. NG tube to LI WS doing well. Pain is well controlled with morphine TOBACCO SAMPLER. Patient's chart, labs, images were reviewed and discussed with RN 02/19/2021 No acute events overnight. Patient seen and examined bedside. NG tube discontinued yesterday. Continue with IV TOBACCO SAMPLER morphine. [facility] No flatus at this time. Out of bed to chair possibly. Patient's chart, labs, images were reviewed and discussed with RN Vitals/I&O Vitals/I&O: Vital Signs Date Time Temp Pulse Resp B/P (MAP) Pulse Ox O2 Delivery O2 Flow Rate FiO2 02/19/21 12:00 98.8 94 21 133/75 (94) 100 Room Air 98.8 I & O 02/18/21 02/18/21 02/19/21 15:00 23:00 07:00 Intake Total 1536 ml Output Total 1150 ml 1305 ml 650 ml Balance -1150 ml -1305 ml 886 ml Physical Exam General: Alert, Oriented X3, Cooperative, mild distress Heart: Regular rate, Normal S1, Normal S2 Abdomen: Soft, Other (appropriate TTP, Left CT in place, serosang drainage, G- tube in place) Extremities: No clubbing, No cyanosis Skin: No rashes, No breakdown Labs Labs: Laboratory Tests Test 02/19/21 09:50 Thyroid Stimulating Hormone (TSH) 1.543 uIU/mL (0.358-3.74) Assessment and Plan Assessmemt and Plan Problems Medical Problems: (1) Abdominal pain Status: Acute (2) Gastric volvulus Status: Acute (3) Hiatal hernia Status: Acute (4) Hypokalemia Status: Acute (5) Lactic acidosis Status: Acute Comment Review of Relevant I have reviewed the following items boogie (where applicable) has been applied. Justifications for Admission Other Justification MARIA D LOPEZ MD Feb 19, 2021 14:11
--- NOTE | 2021-02-19 15:36 | PDOC ---
Date of Service: DATE: 02/19/21 TIME: 15:33 Subjective: Subjective: I saw this patient this morning around 8:30 when she was still in ICU. She report abdominal pain was improved and she felt better. No flatus. No nausea. Objective: Vital Signs: Vital Signs Date Time Temp Pulse Resp B/P (MAP) Pulse Ox O2 Delivery O2 Flow Rate FiO2 02/19/21 12:00 98.8 94 21 133/75 (94) 100 Room Air 98.8 Labs: Laboratory Tests Test 02/19/21 09:50 Thyroid Stimulating Hormone (TSH) 1.543 uIU/mL PE: GEN: NAD LUNGS: clear, CT HEART: RRR ABD: soft, less discomfort compared to yesterday NEURO/PSYCH: A & O 3 A/P: S/p diaphragmatic hernia repair -- Transferred to floor (out of ICU) since I have seen. Continue support, follow surgery recs. Agree w/ IV acid-underwriting service representative. Justicifation of Admission Dx: Justifications for Admission: Justification of Admission Dx: Yes SYL MELGAR Feb 19, 2021 15:36 ESTEFANI ASCENCIO MD Feb 19, 2021 15:37
--- NOTE | 2021-02-19 15:46 | NUR ---
SS following up with discharge planning. SS reviewed pt chart and discussed with pt RN. Pt is currently on room air. COVID19 negative. G-tube and left chest tube in place. Water seal on chest tube. 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 No bowel sounds. Pt transferred to room 532. Surgery and GI following. SS will continue to follow for discharge planning.
--- NOTE | 2021-02-19 15:57 | PDOC ---
SURGICAL PROGRESS NOTE DATE: 02/19/21 TIME: 15:55 Subjective Pt with some incisional pain, but improved, some SOA Vital Signs Vital Signs Date Time Temp Pulse Resp B/P (MAP) Pulse Ox O2 Delivery O2 Flow Rate FiO2 02/19/21 12:00 98.8 94 21 133/75 (94) 100 Room Air 98.8 I&O Intake and Output 02/19/21 07:00 Intake Total 1536 ml Output Total 3105 ml Balance -1569 ml Intake IV Total 1536 ml Output Urine Total 3025 ml Chest Tube Drainage Total 80 ml Drainage Total 0 ml General: Alert, Oriented X3, Cooperative, mild distress Abdomen: Soft, No tenderness Labs Laboratory Tests Test 02/17/21 16:20 02/18/21 05:20 02/19/21 09:50 White Blood Count 15.5 x10^3/uL (4.0-11.0) 8.6 x10^3/uL (4.0-11.0) Red Blood Count 4.21 x10^6/uL (3.50-5.40) 4.09 x10^6/uL (3.50-5.40) Hemoglobin 10.9 g/dL (12.0-15.5) 10.9 g/dL (12.0-15.5) Hematocrit 34.6 % (36.0-47.0) 33.7 % (36.0-47.0) Mean Corpuscular Volume 82 fL (79-100) 82 fL (79-100) Mean Corpuscular Hemoglobin 26 pg (25-35) 27 pg (25-35) Mean Corpuscular Hemoglobin Concent 31 g/dL (31-37) 32 g/dL (31-37) Red Cell Distribution Width 14.6 % (11.5-14.5) 14.7 % (11.5-14.5) Platelet Count 196 x10^3/uL (140-400) 179 x10^3/uL (140-400) Neutrophils (%) (Auto) 91 % (31-73) 79 % (31-73) Lymphocytes (%) (Auto) 4 % (24-48) 12 % (24-48) Monocytes (%) (Auto) 5 % (0-9) 8 % (0-9) Eosinophils (%) (Auto) 0 % (0-3) 0 % (0-3) Basophils (%) (Auto) 0 % (0-3) 0 % (0-3) Neutrophils # (Auto) 14.1 x10^3/uL (1.8-7.7) 6.8 x10^3/uL (1.8-7.7) Lymphocytes # (Auto) 0.6 x10^3/uL (1.0-4.8) 1.1 x10^3/uL (1.0-4.8) Monocytes # (Auto) 0.7 x10^3/uL (0.0-1.1) 0.7 x10^3/uL (0.0-1.1) Eosinophils # (Auto) 0.0 x10^3/uL (0.0-0.7) 0.0 x10^3/uL (0.0-0.7) Basophils # (Auto) 0.0 x10^3/uL (0.0-0.2) 0.0 x10^3/uL (0.0-0.2) Segmented Neutrophils % 79 % (35-66) Band Neutrophils % 15 % (0-9) Lymphocytes % 2 % (24-48) Monocytes % 4 % (0-10) Platelet Estimate Adequate (ADEQUATE) Large Platelets Few Sodium Level 136 mmol/L (136-145) Potassium Level 4.4 mmol/L (3.5-5.1) Chloride Level 101 mmol/L (98-107) Carbon Dioxide Level 27 mmol/L (21-32) Anion Gap 8 (6-14) Blood Urea Nitrogen 6 mg/dL (7-20) Creatinine 0.7 mg/dL (0.6-1.0) Estimated GFR (Cockcroft-Gault) 87.9 Glucose Level 122 mg/dL (70-99) Calcium Level 8.5 mg/dL (8.5-10.1) Thyroid Stimulating Hormone (TSH) 1.543 uIU/mL (0.358-3.74) Laboratory Tests Test 02/19/21 09:50 Thyroid Stimulating Hormone (TSH) 1.543 uIU/mL (0.358-3.74) Problem List Problems Medical Problems: (1) Abdominal pain Status: Acute (2) Gastric volvulus Status: Acute (3) Hiatal hernia Status: Acute (4) Hypokalemia Status: Acute (5) Lactic acidosis Status: Acute Assessment/Plan s/p gastric volvulus reduction will d/c griffin and try clears check CXR in AM chest tube to water seal Justicifation of Admission Dx: Justifications for Admission: Justification of Admission Dx: Yes ABBEY VILA MD Feb 19, 2021 15:57
[2021-02-19] MEDS: ENOXAPARIN 40 MG/0.4 ML SYRINGE. SQ SCH (22:49)
[2021-02-20 02:37] VITALS: BP 125/82
[2021-02-20] MEDS: LEVOTHYROXINE 50 MCG TABLET PO SCH (06:00)
--- NOTE | 2021-02-20 07:17 | NUR ---
Broussard catheter removed at 0630
[2021-02-20 07:46] LABS: HEMATOCRIT 27.3 % (36.0-47.0); HEMOGLOBIN 8.8 g/dL (12.0-15.5); RED BLOOD COUNT 3.32 x10^6/uL (3.50-5.40); RED CELL DISTRIBUTION WIDTH 14.7 % (11.5-14.5); WHITE BLOOD COUNT 6.6 x10^3/uL (4.0-11.0)
[2021-02-20 08:00] VITALS: BP 130/70
[2021-02-20 08:10] LABS: ALBUMIN 2.4 g/dL (3.4-5.0); ALBUMIN/GLOBULIN RATIO 0.7 (1.0-1.7); CREATININE 0.5 mg/dL (0.6-1.0); GFR 129.6; POTASSIUM 3.5 mmol/L (3.5-5.1); TOTAL BILIRUBIN 0.4 mg/dL (0.2-1.0); TOTAL PROTEIN 5.8 g/dL (6.4-8.2)
--- NOTE | 2021-02-20 09:07 | PDOC ---
SURGICAL PROGRESS NOTE DATE: 02/20/21 TIME: 09:06 Subjective tolerating clears pain managed Vital Signs Vital Signs Date Time Temp Pulse Resp B/P (MAP) Pulse Ox O2 Delivery O2 Flow Rate FiO2 02/20/21 02:37 98.5 88 16 125/82 (96) 98 Room Air 98.5 I&O Intake and Output 02/20/21 07:00 Output Total 2325 ml Balance -2325 ml Output Urine Total 2075 ml Chest Tube Drainage Total 250 ml General: Alert, Cooperative Lungs: Other (ct in place) Abdomen: Soft, Other (drain in place, dressing dry) Labs Laboratory Tests Test 02/19/21 09:50 02/20/21 07:14 Thyroid Stimulating Hormone (TSH) 1.543 uIU/mL (0.358-3.74) White Blood Count 6.6 x10^3/uL (4.0-11.0) Red Blood Count 3.32 x10^6/uL (3.50-5.40) Hemoglobin 8.8 g/dL (12.0-15.5) Hematocrit 27.3 % (36.0-47.0) Mean Corpuscular Volume 82 fL (79-100) Mean Corpuscular Hemoglobin 27 pg (25-35) Mean Corpuscular Hemoglobin Concent 32 g/dL (31-37) Red Cell Distribution Width 14.7 % (11.5-14.5) Platelet Count 174 x10^3/uL (140-400) Sodium Level 138 mmol/L (136-145) Potassium Level 3.5 mmol/L (3.5-5.1) Chloride Level 103 mmol/L (98-107) Carbon Dioxide Level 23 mmol/L (21-32) Anion Gap 12 (6-14) Blood Urea Nitrogen 7 mg/dL (7-20) Creatinine 0.5 mg/dL (0.6-1.0) Estimated GFR (Cockcroft-Gault) 129.6 BUN/Creatinine Ratio 14 (6-20) Glucose Level 80 mg/dL (70-99) Calcium Level 8.0 mg/dL (8.5-10.1) Total Bilirubin 0.4 mg/dL (0.2-1.0) Aspartate Amino Transf (AST/SGOT) 34 U/L (15-37) Alanine Aminotransferase (ALT/SGPT) 83 U/L (14-59) Alkaline Phosphatase 44 U/L (46-116) Total Protein 5.8 g/dL (6.4-8.2) Albumin 2.4 g/dL (3.4-5.0) Albumin/Globulin Ratio 0.7 (1.0-1.7) Laboratory Tests Test 02/19/21 09:50 02/20/21 07:14 Thyroid Stimulating Hormone (TSH) 1.543 uIU/mL (0.358-3.74) White Blood Count 6.6 x10^3/uL (4.0-11.0) Red Blood Count 3.32 x10^6/uL (3.50-5.40) Hemoglobin 8.8 g/dL (12.0-15.5) Hematocrit 27.3 % (36.0-47.0) Mean Corpuscular Volume 82 fL (79-100) Mean Corpuscular Hemoglobin 27 pg (25-35) Mean Corpuscular Hemoglobin Concent 32 g/dL (31-37) Red Cell Distribution Width 14.7 % (11.5-14.5) Platelet Count 174 x10^3/uL (140-400) Sodium Level 138 mmol/L (136-145) Potassium Level 3.5 mmol/L (3.5-5.1) Chloride Level 103 mmol/L (98-107) Carbon Dioxide Level 23 mmol/L (21-32) Anion Gap 12 (6-14) Blood Urea Nitrogen 7 mg/dL (7-20) Creatinine 0.5 mg/dL (0.6-1.0) Estimated GFR (Cockcroft-Gault) 129.6 BUN/Creatinine Ratio 14 (6-20) Glucose Level 80 mg/dL (70-99) Calcium Level 8.0 mg/dL (8.5-10.1) Total Bilirubin 0.4 mg/dL (0.2-1.0) Aspartate Amino Transf (AST/SGOT) 34 U/L (15-37) Alanine Aminotransferase (ALT/SGPT) 83 U/L (14-59) Alkaline Phosphatase 44 U/L (46-116) Total Protein 5.8 g/dL (6.4-8.2) Albumin 2.4 g/dL (3.4-5.0) Albumin/Globulin Ratio 0.7 (1.0-1.7) Problem List Problems Medical Problems: (1) Abdominal pain Status: Acute (2) Gastric volvulus Status: Acute (3) Hiatal hernia Status: Acute (4) Hypokalemia Status: Acute (5) Lactic acidosis Status: Acute Assessment/Plan cxr pending today Justicifation of Admission Dx: Justifications for Admission: Justification of Admission Dx: Yes DANIELLE RUSSELL APRN Feb 20, 2021 09:07
[2021-02-20] MEDS: IV RINGERS,LACTATED 1000ML 1,000 ML IV SCH ×2 (09:41→21:33)
[2021-02-20] MEDS: FAMOTIDINE 20 MG/2 ML VIAL IVP SCH ×2 (09:42→21:34)
--- NOTE | 2021-02-20 10:16 | PDOC ---
Date of Service: DATE: 02/20/21 TIME: 10:14 Subjective: Subjective: Better - less pain, passing flatus, tolerating clears - would like a shower. Also has some left shoulder pain. Objective: Vital Signs: Vital Signs Date Time Temp Pulse Resp B/P (MAP) Pulse Ox O2 Delivery O2 Flow Rate FiO2 02/20/21 08:00 98.6 88 18 130/70 (90) 98 Room Air 98.6 Labs: Laboratory Tests Test 02/20/21 07:14 White Blood Count 6.6 x10^3/uL Red Blood Count 3.32 x10^6/uL Hemoglobin 8.8 g/dL Hematocrit 27.3 % Mean Corpuscular Volume 82 fL Mean Corpuscular Hemoglobin 27 pg Mean Corpuscular Hemoglobin Concent 32 g/dL Red Cell Distribution Width 14.7 % Platelet Count 174 x10^3/uL Sodium Level 138 mmol/L Potassium Level 3.5 mmol/L Chloride Level 103 mmol/L Carbon Dioxide Level 23 mmol/L Anion Gap 12 Blood Urea Nitrogen 7 mg/dL Creatinine 0.5 mg/dL Estimated GFR (Cockcroft-Gault) 129.6 BUN/Creatinine Ratio 14 Glucose Level 80 mg/dL Calcium Level 8.0 mg/dL Total Bilirubin 0.4 mg/dL Aspartate Amino Transf (AST/SGOT) 34 U/L Alanine Aminotransferase (ALT/SGPT) 83 U/L Alkaline Phosphatase 44 U/L Total Protein 5.8 g/dL Albumin 2.4 g/dL Albumin/Globulin Ratio 0.7 PE: GEN: NAD LUNGS: clear, chest tube HEART: RRR ABD: soft, pretty quiet, G tube NEURO/PSYCH: A & O 3 A/P: S/p diaphragmatic hernia repair -- Improving. Awaiting CXR, continue per surgery. Justicifation of Admission Dx: Justifications for Admission: Justification of Admission Dx: Yes SYL MELGAR Feb 20, 2021 10:16
--- NOTE | 2021-02-20 10:44 | NUR ---
SW following. Discussed with RN, pt from home with spouse, room air, clear liquid diet, rapid COVID-19 negative. 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 Pt not medically ready for discharge. RN advised no SW needs at this time. SW will continue to follow.
--- NOTE | 2021-02-20 11:49 | PDOC ---
[employer] PROGRESS NOTE Date of Service DOS: DATE: 02/20/21 TIME: 11:43 Chief Complaint Chief Complaint Acute abdominal pain secondary to gastric volvulus status post laparoscopic converted to open laparotomy with gastric volvulus reduction, diaphragmatic hernia repair, left chest tube placement and G-tube placement Out of bed to chair Diet per surgery Continue IV fluids Morphine HOME THEATER EXPERT for pain control History of Present Illness History of Present Illness Ms Lloyd is a 50-year-old female who had a large hiatal hernia and underwent a Damaris fundoplication in [place] in 05/2020. Now, she presents with abdominal pain. We did some imaging. She has got a gastric volvulus. Admitted the patient with consultation to GI and General Surgery. 02/18: Patient seen and examined bedside. NG tube to WS doing well. Pain is well controlled with morphine HOME THEATER EXPERT. Patient's chart, labs, images were reviewed and discussed with RN 02/19: No acute events overnight. Patient seen and examined bedside. NG tube discontinued yesterday. Continue with IV HOME THEATER EXPERT morphine. [facility] No flatus at this time. Out of bed to chair. 02/20: Pain little better controlled was passing flatus and advanced to clears. Has some shoulder pain and is awaiting PA and lateral chest radiograph today. Vitals/I&O Vitals/I&O: Vital Signs Date Time Temp Pulse Resp B/P (MAP) Pulse Ox O2 Delivery O2 Flow Rate FiO2 02/20/21 08:00 98.6 88 18 130/70 (90) 98 Room Air 98.6 I & O 02/19/21 02/19/21 02/20/21 15:00 23:00 07:00 Output Total 1350 ml 975 ml Balance -1350 ml -975 ml Physical Exam General: Alert, Cooperative Heart: Regular rate, Normal S1, Normal S2 Abdomen: Soft, Other (drain in place, dressing dry) Extremities: No clubbing, No cyanosis Skin: No rashes, No breakdown Labs Labs: Laboratory Tests Test 02/20/21 07:14 White Blood Count 6.6 x10^3/uL (4.0-11.0) Red Blood Count 3.32 x10^6/uL (3.50-5.40) Hemoglobin 8.8 g/dL (12.0-15.5) Hematocrit 27.3 % (36.0-47.0) Mean Corpuscular Volume 82 fL (79-100) Mean Corpuscular Hemoglobin 27 pg (25-35) Mean Corpuscular Hemoglobin Concent 32 g/dL (31-37) Red Cell Distribution Width 14.7 % (11.5-14.5) Platelet Count 174 x10^3/uL (140-400) Sodium Level 138 mmol/L (136-145) Potassium Level 3.5 mmol/L (3.5-5.1) Chloride Level 103 mmol/L (98-107) Carbon Dioxide Level 23 mmol/L (21-32) Anion Gap 12 (6-14) Blood Urea Nitrogen 7 mg/dL (7-20) Creatinine 0.5 mg/dL (0.6-1.0) Estimated GFR (Cockcroft-Gault) 129.6 BUN/Creatinine Ratio 14 (6-20) Glucose Level 80 mg/dL (70-99) Calcium Level 8.0 mg/dL (8.5-10.1) Total Bilirubin 0.4 mg/dL (0.2-1.0) Aspartate Amino Transf (AST/SGOT) 34 U/L (15-37) Alanine Aminotransferase (ALT/SGPT) 83 U/L (14-59) Alkaline Phosphatase 44 U/L (46-116) Total Protein 5.8 g/dL (6.4-8.2) Albumin 2.4 g/dL (3.4-5.0) Albumin/Globulin Ratio 0.7 (1.0-1.7) Assessment and Plan Assessmemt and Plan Problems Medical Problems: (1) Abdominal pain Status: Acute (2) Gastric volvulus Status: Acute (3) Hiatal hernia Status: Acute (4) Hypokalemia Status: Acute (5) Lactic acidosis Status: Acute Comment Review of Relevant I have reviewed the following items boogie (where applicable) has been applied. Medications: Current Medications Medications (Trade) Dose Ordered Sig/Carolyn Route PRN Reason Start Time Stop Time Status Last Admin Dose Admin Levothyroxine Sodium (Synthroid) 50 mcg DAILY06 PO 02/20/21 06:00 02/20/21 06:00 Justifications for Admission Other Justification MEEK LEONARDO MD Feb 20, 2021 11:49
[2021-02-20 12:00] VITALS: BP 131/78
--- NOTE | 2021-02-20 14:11 | RAD ---
EXAM: Chest, single view. HISTORY: Pneumothorax. COMPARISON: 02/17/2021 FINDINGS: A frontal view of the chest is obtained. There has been removal of a nasogastric tube. Ther e is a left thoracostomy tube unchanged in position. There is stable suspected left lower lobe atelec tasis or infiltrate. There is no convincing pneumothorax or pleural effusion. The heart is stable in size. There are implanted breast prostheses. IMPRESSION: 1. Left thoracostomy tube unchanged in position. 2. Stable left lower lobe atelectasis or infiltrate. Electronically signed by: Claire Burnette MD (02/20/2021 2:08 PM) [id number]
[2021-02-20 16:00] VITALS: BP 134/74
[2021-02-20 19:00] VITALS: BP 143/74
[2021-02-20] MEDS: ENOXAPARIN 40 MG/0.4 ML SYRINGE. SQ SCH (21:34)
[2021-02-20] MEDS: IV NORMAL SALINE 1000ML BAG 1,000 ML IV SCH (21:35)
[2021-02-20 23:00] VITALS: BP 130/66
[2021-02-21 03:00] VITALS: BP 138/66
[2021-02-21] MEDS: IV RINGERS,LACTATED 1000ML 1,000 ML IV SCH ×2 (04:00→21:15)
[2021-02-21] MEDS: LEVOTHYROXINE 50 MCG TABLET PO SCH (06:28)
[2021-02-21 08:00] VITALS: BP 153/65
--- NOTE | 2021-02-21 10:29 | PDOC ---
[employer] PROGRESS NOTE Date of Service DOS: DATE: 02/21/21 TIME: 10:29 Chief Complaint Chief Complaint Acute abdominal pain secondary to gastric volvulus status post laparoscopic converted to open laparotomy with gastric volvulus reduction, diaphragmatic hernia repair, left chest tube placement and G-tube placement Out of bed to chair Diet per surgery Continue IV fluids Morphine HAND QUILTER for pain control History of Present Illness History of Present Illness Ms Lloyd is a 50-year-old female who had a large hiatal hernia and underwent a Damaris fundoplication in [place] in 05/2020. Now, she presents with abdominal pain. We did some imaging. She has got a gastric volvulus. Admitted the patient with consultation to GI and General Surgery. 02/18: Patient seen and examined bedside. NG tube to WS doing well. Pain is well controlled with morphine HAND QUILTER. Patient's chart, labs, images were reviewed and discussed with RN 02/19: No acute events overnight. Patient seen and examined bedside. NG tube discontinued yesterday. Continue with IV HAND QUILTER morphine. Okay for transfer to the [facility] floor. No flatus at this time. Out of bed to chair. 02/20: Pain little better controlled was passing flatus and advanced to clears. Has some shoulder pain and is awaiting PA and lateral chest radiograph today. 02/21, Surg to remove chest tube, pain better, not using HAND QUILTER< will stop on clear liquid diet, has had gas, no stool, discussed with gen surg Vitals/I&O Vitals/I&O: Vital Signs Date Time Temp Pulse Resp B/P (MAP) Pulse Ox O2 Delivery O2 Flow Rate FiO2 02/21/21 08:00 98.2 86 20 153/65 (94) 98 Room Air 98.2 02/20/21 08:16 2.0 I & O 02/20/21 02/20/21 02/21/21 15:00 23:00 07:00 Intake Total 240 ml 480 ml Output Total 375 ml 900 ml 1150 ml Balance -375 ml -660 ml -670 ml Physical Exam General: Alert, Cooperative Heart: Regular rate, Normal S1, Normal S2 Abdomen: Soft, Other (drain in place, dressing dry) Extremities: No clubbing, No cyanosis Skin: No rashes, No breakdown Assessment and Plan Assessmemt and Plan Problems Medical Problems: (1) Abdominal pain Status: Acute (2) Gastric volvulus Status: Acute (3) Hiatal hernia Status: Acute (4) Hypokalemia Status: Acute (5) Lactic acidosis Status: Acute Comment Review of Relevant I have reviewed the following items boogie (where applicable) has been applied. Justifications for Admission Other Justification MAXWELL REYES MD Feb 21, 2021 10:29
--- NOTE | 2021-02-21 11:14 | PDOC ---
SURGICAL PROGRESS NOTE DATE: 02/21/21 TIME: 11:12 Subjective some bleeding when urinates, wipes no nausea Vital Signs Vital Signs Date Time Temp Pulse Resp B/P (MAP) Pulse Ox O2 Delivery O2 Flow Rate FiO2 02/21/21 08:00 98.2 86 20 153/65 (94) 98 Room Air 98.2 02/20/21 08:16 2.0 I&O Intake and Output 02/21/21 07:00 Intake Total 720 ml Output Total 2425 ml Balance -1705 ml Intake Oral 720 ml Output Urine Total 2275 ml Chest Tube Drainage Total 150 ml # Voids 4 General: Alert, Oriented X3, Cooperative Abdomen: Soft, Other (clamped g tube, chest tube removed, petroleum gauze, 4x4 and foam tape) Labs Laboratory Tests Test 02/20/21 07:14 White Blood Count 6.6 x10^3/uL (4.0-11.0) Red Blood Count 3.32 x10^6/uL (3.50-5.40) Hemoglobin 8.8 g/dL (12.0-15.5) Hematocrit 27.3 % (36.0-47.0) Mean Corpuscular Volume 82 fL (79-100) Mean Corpuscular Hemoglobin 27 pg (25-35) Mean Corpuscular Hemoglobin Concent 32 g/dL (31-37) Red Cell Distribution Width 14.7 % (11.5-14.5) Platelet Count 174 x10^3/uL (140-400) Sodium Level 138 mmol/L (136-145) Potassium Level 3.5 mmol/L (3.5-5.1) Chloride Level 103 mmol/L (98-107) Carbon Dioxide Level 23 mmol/L (21-32) Anion Gap 12 (6-14) Blood Urea Nitrogen 7 mg/dL (7-20) Creatinine 0.5 mg/dL (0.6-1.0) Estimated GFR (Cockcroft-Gault) 129.6 BUN/Creatinine Ratio 14 (6-20) Glucose Level 80 mg/dL (70-99) Calcium Level 8.0 mg/dL (8.5-10.1) Total Bilirubin 0.4 mg/dL (0.2-1.0) Aspartate Amino Transf (AST/SGOT) 34 U/L (15-37) Alanine Aminotransferase (ALT/SGPT) 83 U/L (14-59) Alkaline Phosphatase 44 U/L (46-116) Total Protein 5.8 g/dL (6.4-8.2) Albumin 2.4 g/dL (3.4-5.0) Albumin/Globulin Ratio 0.7 (1.0-1.7) Problem List Problems Medical Problems: (1) Abdominal pain Status: Acute (2) Gastric volvulus Status: Acute (3) Hiatal hernia Status: Acute (4) Hypokalemia Status: Acute (5) Lactic acidosis Status: Acute Assessment/Plan intermittent menstrual cycles still, will check UA cxr in am advance diet Justicifation of Admission Dx: Justifications for Admission: Justification of Admission Dx: Yes DANIELLE RUSSELL FIELD TECHNICIAN Feb 21, 2021 11:14
[2021-02-21] MEDS: FAMOTIDINE 20 MG/2 ML VIAL IVP SCH ×2 (11:34→21:17)
[2021-02-21 12:00] VITALS: BP 140/77
--- NOTE | 2021-02-21 12:12 | PDOC ---
G I PROGRESS NOTE Reason for Follow-up Gastric volvulus Subjective Feeling better Physical Exam Lungs decreased BS CV S1 S2 ABD +BS, soft, incisions intact Review of Relevant I have reviewed the following items boogie (where applicable) has been applied. Labs Laboratory Tests Test 02/20/21 07:14 White Blood Count 6.6 x10^3/uL (4.0-11.0) Red Blood Count 3.32 x10^6/uL (3.50-5.40) Hemoglobin 8.8 g/dL (12.0-15.5) Hematocrit 27.3 % (36.0-47.0) Mean Corpuscular Volume 82 fL (79-100) Mean Corpuscular Hemoglobin 27 pg (25-35) Mean Corpuscular Hemoglobin Concent 32 g/dL (31-37) Red Cell Distribution Width 14.7 % (11.5-14.5) Platelet Count 174 x10^3/uL (140-400) Sodium Level 138 mmol/L (136-145) Potassium Level 3.5 mmol/L (3.5-5.1) Chloride Level 103 mmol/L (98-107) Carbon Dioxide Level 23 mmol/L (21-32) Anion Gap 12 (6-14) Blood Urea Nitrogen 7 mg/dL (7-20) Creatinine 0.5 mg/dL (0.6-1.0) Estimated GFR (Cockcroft-Gault) 129.6 BUN/Creatinine Ratio 14 (6-20) Glucose Level 80 mg/dL (70-99) Calcium Level 8.0 mg/dL (8.5-10.1) Total Bilirubin 0.4 mg/dL (0.2-1.0) Aspartate Amino Transf (AST/SGOT) 34 U/L (15-37) Alanine Aminotransferase (ALT/SGPT) 83 U/L (14-59) Alkaline Phosphatase 44 U/L (46-116) Total Protein 5.8 g/dL (6.4-8.2) Albumin 2.4 g/dL (3.4-5.0) Albumin/Globulin Ratio 0.7 (1.0-1.7) Medications Current Medications Sodium Chloride 1,000 ml @ 1,000 mls/hr 1X ONCE IV Last administered on 02/17/21at 04:51; Start 02/17/21 at 05:00; Stop 02/17/21 at 05:59; Status DC Famotidine (Pepcid Vial) 20 mg 1X ONCE IVP Last administered on 02/17/21at 04:52; Start 02/17/21 at 05:00; Stop 02/17/21 at 05:01; Status DC Ondansetron HCl (Zofran) 4 mg 1X ONCE IVP Last administered on 02/17/21at 04:51; Start 02/17/21 at 05:00; Stop 02/17/21 at 05:01; Status DC Fentanyl Citrate (Fentanyl 2ml Vial) 75 mcg 1X ONCE IV Last administered on 02/17/21at 04:51; Start 02/17/21 at 05:00; Stop 02/17/21 at 05:01; Status DC Morphine Sulfate (Morphine Sulfate) 4 mg 1X ONCE IVP Last administered on 02/17/21at 05:23; Start 02/17/21 at 06:00; Stop 02/17/21 at 06:01; Status DC Iohexol (Omnipaque 350 Mg/ml) 100 ml 1X ONCE IV Last administered on 02/17/21at 05:53; Start 02/17/21 at 06:00; Stop 02/17/21 at 06:01; Status DC Info (CONTRAST GIVEN -- Rx MONITORING) 1 each PRN DAILY PRN MC SEE COMMENTS; Start 02/17/21 at 06:00; Stop 02/19/21 at 05:59; Status DC Iohexol (Omnipaque 350 Mg/ml) 100 ml STK-MED ONCE .ROUTE ; Start 02/17/21 at 05:56; Stop 02/17/21 at 05:56; Status DC Hydromorphone HCl (Dilaudid) 0.5 mg 1X ONCE IVP Last administered on 02/17/21at 06:20; Start 02/17/21 at 06:30; Stop 02/17/21 at 06:31; Status DC Labetalol HCl (Normodyne Iv Push) 10 mg 1X ONCE IVP Last administered on 02/17/21at 06:43; Start 02/17/21 at 06:30; Stop 02/17/21 at 06:31; Status DC Hydromorphone HCl (Dilaudid) 0.5 mg 1X ONCE IVP Last administered on 02/17/21at 07:38; Start 02/17/21 at 07:30; Stop 02/17/21 at 07:31; Status DC Sodium Chloride 1,000 ml @ 1,000 mls/hr 1X ONCE IV Last administered on 02/17/21at 07:38; Start 02/17/21 at 07:30; Stop 02/17/21 at 08:29; Status DC Ondansetron HCl (Zofran) 4 mg PRN Q8HRS PRN IVP NAUSEA/VOMITING; Start 02/17/21 at 08:15; Stop 02/18/21 at 08:14; Status DC Hydromorphone HCl (Dilaudid) 0.5 mg PRN Q2HRS PRN IVP PAIN Last administered on 02/17/21at 13:46; Start 02/17/21 at 08:15 Sodium Chloride 1,000 ml @ 100 mls/hr 1X ONCE IV Last administered on 02/17/21at 08:15; Start 02/17/21 at 08:15; Stop 02/17/21 at 18:14; Status DC Fentanyl Citrate (Fentanyl 2ml Vial) 25 mcg PRN Q5MIN PRN IVP MILD PAIN 1-3; Start 02/17/21 at 12:15; Stop 02/18/21 at 12:14; Status DC Fentanyl Citrate (Fentanyl 2ml Vial) 50 mcg PRN Q5MIN PRN IVP MODERATE PAIN 4-6 Last administered on 02/17/21at 19:05; Start 02/17/21 at 12:15; Stop 02/18/21 at 12:14; Status DC Morphine Sulfate (Morphine Sulfate) 1 mg PRN Q10MIN PRN IVP SEVERE PAIN 7-10 Last administered on 02/17/21at 19:05; Start 02/17/21 at 12:15; Stop 02/18/21 at 12:14; Status DC Ringer's Solution 1,000 ml @ 30 mls/hr Q24H IV ; Start 02/17/21 at 12:15; Stop 02/18/21 at 00:14; Status DC Hydromorphone HCl (Dilaudid) 0.5 mg PRN Q10MIN PRN IVP SEVERE PAIN 7-10, 2nd CHOICE Last administered on 02/17/21at 19:59; Start 02/17/21 at 12:15; Stop 02/18/21 at 12:14; Status DC Prochlorperazine Edisylate (Compazine) 5 mg PACU PRN PRN IVP NAUSEA, MRX1; Start 02/17/21 at 12:15; Stop 02/18/21 at 12:14; Status DC Bupivacaine HCl/ Epinephrine Bitart (Sensorcain-Epi 0.5% Kit) 30 ml STK-MED ONCE .ROUTE Last administered on 02/17/21at 15:40; Start 02/17/21 at 13:44; Stop 02/17/21 at 13:44; Status DC Propofol (Diprivan) 200 mg STK-MED ONCE IV ; Start 02/17/21 at 14:00; Stop 02/17/21 at 14:01; Status DC Desflurane (Suprane) 60 ml STK-MED ONCE IH ; Start 02/17/21 at 14:01; Stop 02/17/21 at 14:01; Status DC Lidocaine HCl (Lidocaine Pf 2% Vial) 5 ml STK-MED ONCE .ROUTE ; Start 02/17/21 at 14:01; Stop 02/17/21 at 14:01; Status DC Phenylephrine HCl (PHENYLEPHRINE in 0.9% NACL PF) 1 mg STK-MED ONCE IV ; Start 02/17/21 at 14:01; Stop 02/17/21 at 14:01; Status DC Rocuronium [place] (Zemuron) 50 mg STK-MED ONCE .ROUTE ; Start 02/17/21 at 14:02; Stop 02/17/21 at 14:02; Status DC Cefoxitin Sodium (Mefoxin) 2 gm 1X PERIOP ONCE IVP Last administered on 02/17/21at 14:55; Start 02/17/21 at 14:45; Stop 02/17/21 at 14:46; Status DC Fentanyl Citrate (Fentanyl 2ml Vial) 100 mcg STK-MED ONCE .ROUTE ; Start 02/17/21 at 15:42; Stop 02/17/21 at 15:42; Status DC Albumin Human 500 ml @ As Directed STK-MED ONCE IV ; Start 02/17/21 at 16:06; Stop 02/17/21 at 16:06; Status DC Rocuronium [place] (Zemuron) 100 mg STK-MED ONCE .ROUTE ; Start 02/17/21 at 16:40; Stop 02/17/21 at 16:41; Status DC Glycopyrrolate (Robinul) 1 mg STK-MED ONCE .ROUTE ; Start 02/17/21 at 17:28; Stop 02/17/21 at 17:28; Status DC Glycopyrrolate (Robinul) 1 mg STK-MED ONCE .ROUTE ; Start 02/17/21 at 17:28; Stop 02/17/21 at 17:28; Status DC Hydromorphone HCl (Dilaudid) 2 mg STK-MED ONCE .ROUTE ; Start 02/17/21 at 17:38; Stop 02/17/21 at 17:38; Status DC Fentanyl Citrate (Fentanyl 2ml Vial) 100 mcg STK-MED ONCE .ROUTE ; Start 02/17/21 at 18:33; Stop 02/17/21 at 18:34; Status DC Morphine Sulfate (Morphine Sulfate) 2 mg STK-MED ONCE .ROUTE ; Start 02/17/21 at 18:34; Stop 02/17/21 at 18:34; Status DC Hydromorphone HCl (Dilaudid) 2 mg STK-MED ONCE .ROUTE ; Start 02/17/21 at 19:56; Stop 02/17/21 at 19:57; Status DC Famotidine (Pepcid Vial) 20 mg BID IVP Last administered on 02/21/21at 11:34; Start 02/17/21 at 21:00 Enoxaparin Sodium (Lovenox 40mg Syringe) 40 mg Q24H SQ Last administered on 02/20/21at 21:34; Start 02/17/21 at 20:00 Sodium Chloride (Normal Saline Flush) 3 ml QSHIFT PRN IV AFTER MEDS AND BLOOD DRAWS; Start 02/17/21 at 20:00 Ringer's Solution 1,000 ml @ 100 mls/hr Q10H IV Last administered on 02/20/21at 21:33; Start 02/17/21 at 20:00 Naloxone HCl (Narcan) 0.4 mg PRN Q2MIN PRN IV SEE INSTRUCTIONS; Start 02/17/21 at 20:00 Sodium Chloride 1,000 ml @ 25 mls/hr Q24H IV Last administered on 02/20/21at 21:35; Start 02/17/21 at 20:00 Morphine Sulfate 30 ml @ 0 mls/hr CONT PRN PRN IV PER PROTOCOL Last administered on 02/17/21at 20:58; Start 02/17/21 at 20:00; Stop 02/21/21 at 10:08; Status DC Ondansetron HCl (Zofran) 4 mg PRN Q6HRS PRN IVP NAUESA, 1ST CHOICE; Start 02/17/21 at 20:00 Levothyroxine Sodium (Synthroid) 50 mcg DAILY06 PO Last administered on 02/21/21at 06:28; Start 02/20/21 at 06:00 Active Scripts Active Reported Levothyroxine (Levothyroxine Sodium) 50 Mcg Capsule 50 Mcg PO DAILY Vitals/I & O Vital Sign - Last 24 Hours 02/20/21 02/20/21 02/20/21 02/20/21 16:00 19:00 20:25 23:00 Temp 98.6 98.6 98.4 98.6 98.6 98.4 Pulse 93 90 88 Resp 16 20 20 B/P (MAP) 134/74 (94) 143/74 (97) 130/66 (87) Pulse Ox 97 97 97 O2 Delivery Room Air Room Air Room Air Room Air 02/21/21 02/21/21 03:00 08:00 Temp 98.2 98.2 98.2 98.2 Pulse 79 86 Resp 20 20 B/P (MAP) 138/66 (90) 153/65 (94) Pulse Ox 98 98 O2 Delivery Room Air Room Air Intake and Output 02/20/21 02/20/21 02/21/21 15:00 23:00 07:00 Intake Total 240 ml 480 ml Output Total 375 ml 900 ml 1150 ml Balance -375 ml -660 ml -670 ml Problem List Problems Medical Problems: (1) Abdominal pain Status: Acute (2) Gastric volvulus Status: Acute (3) Hiatal hernia Status: Acute (4) Hypokalemia Status: Acute (5) Lactic acidosis Status: Acute Assessment Gastric volvulus- s/p repair, clinically improving with drains /tubes being removed, CPM Justicifation of Admission Dx: Justifications for Admission: Justification of Admission Dx: Yes ESTEFANI ASCENCIO MD Feb 21, 2021 12:12
[2021-02-21] MEDS: HYDROmorphone 2 MG/ML INJ. IVP PRN ×2 (13:02→21:27)
[2021-02-21 16:00] VITALS: BP 133/76
[2021-02-21 16:21] LABS: BILIRUBIN,URINE NEGATIVE (NEG); CLARITY,URINE CLEAR; COLOR,URINE YELLOW; NITRITE,URINE NEGATIVE (NEG); PH,URINE 6.5 (<5.0-8.0); PROTEIN,URINE NEGATIVE (NEG-TRACE); UROBILINOGEN,URINE 0.2 mg/dL (0.2 mg/dL)
[2021-02-21 16:32] LABS: BACTERIA,URINE MODERATE /HPF (0-FEW); RBC,URINE >40 /HPF (0-2)
[2021-02-21 19:00] VITALS: BP 137/62
[2021-02-21] MEDS: IV NORMAL SALINE 1000ML BAG 1,000 ML IV SCH (20:00)
[2021-02-21] MEDS: ENOXAPARIN 40 MG/0.4 ML SYRINGE. SQ SCH (21:16)
[2021-02-22 03:00] VITALS: BP 111/66
[2021-02-22] MEDS: LEVOTHYROXINE 50 MCG TABLET PO SCH (06:11)
[2021-02-22 08:00] VITALS: BP 143/77
--- NOTE | 2021-02-22 08:29 | PDOC ---
SURGICAL PROGRESS NOTE DATE: 02/22/21 TIME: 08:27 Subjective feels well tolerating diet not much pain Vital Signs Vital Signs Date Time Temp Pulse Resp B/P (MAP) Pulse Ox O2 Delivery O2 Flow Rate FiO2 02/22/21 03:00 98.4 78 18 111/66 (81) 98 Room Air 98.4 I&O Intake and Output 02/22/21 07:00 Intake Total 400 ml Output Total 400 ml Balance 0 ml Intake Oral 400 ml Output Urine Total 400 ml # Voids 4 General: Alert, Oriented X3, Cooperative Abdomen: Soft, Other (g tube) Labs Laboratory Tests Test 02/21/21 16:00 Urine Collection Type Unknown Urine Color Yellow Urine Clarity Clear Urine pH 6.5 (<5.0-8.0) Urine Specific [place] <=1.005 (1.000-1.030) Urine Protein Negative mg/dL (NEG-TRACE) Urine Glucose (UA) Negative mg/dL (NEG) Urine Ketones (Stick) >=80 mg/dL (NEG) Urine Blood Moderate (NEG) Urine Nitrite Negative (NEG) Urine Bilirubin Negative (NEG) Urine Urobilinogen Dipstick 0.2 mg/dL (0.2 mg/dL) Urine Leukocyte Esterase Negative (NEG) Urine RBC >40 /HPF (0-2) Urine WBC 1-4 /HPF (0-4) Urine Squamous Epithelial Cells Mod /LPF Urine Bacteria Moderate /HPF (0-FEW) Urine Mucus Slight /LPF Laboratory Tests Test 02/21/21 16:00 Urine Collection Type Unknown Urine Color Yellow Urine Clarity Clear Urine pH 6.5 (<5.0-8.0) Urine Specific [place] <=1.005 (1.000-1.030) Urine Protein Negative mg/dL (NEG-TRACE) Urine Glucose (UA) Negative mg/dL (NEG) Urine Ketones (Stick) >=80 mg/dL (NEG) Urine Blood Moderate (NEG) Urine Nitrite Negative (NEG) Urine Bilirubin Negative (NEG) Urine Urobilinogen Dipstick 0.2 mg/dL (0.2 mg/dL) Urine Leukocyte Esterase Negative (NEG) Urine RBC >40 /HPF (0-2) Urine WBC 1-4 /HPF (0-4) Urine Squamous Epithelial Cells Mod /LPF Urine Bacteria Moderate /HPF (0-FEW) Urine Mucus Slight /LPF Problem List Problems Medical Problems: (1) Abdominal pain Status: Acute (2) Gastric volvulus Status: Acute (3) Hiatal hernia Status: Acute (4) Hypokalemia Status: Acute (5) Lactic acidosis Status: Acute Assessment/Plan cxr pending advance diet home soon Justicifation of Admission Dx: Justifications for Admission: Justification of Admission Dx: Yes DANIELLE RUSSELL STEEL FIXER Feb 22, 2021 08:29
[2021-02-22] MEDS: FAMOTIDINE 20 MG/2 ML VIAL IVP SCH ×2 (09:13→21:28)
[2021-02-22] MEDS: IV RINGERS,LACTATED 1000ML 1,000 ML IV SCH ×3 (10:00→21:28)
--- NOTE | 2021-02-22 10:54 | PDOC ---
[employer] PROGRESS NOTE Date of Service DOS: DATE: 02/22/21 TIME: 10:53 Chief Complaint Chief Complaint Acute abdominal pain secondary to gastric volvulus status post laparoscopic converted to open laparotomy with gastric volvulus reduction, diaphragmatic hernia repair, left chest tube placement and G-tube placement Out of bed to chair Diet per surgery Continue IV fluids Morphine INDEPENDENT TRADER for pain control History of Present Illness History of Present Illness Ms Lloyd is a 50-year-old female who had a large hiatal hernia and underwent a Damaris fundoplication in [place] in 05/2020. Now, she presents with abdominal pain. We did some imaging. She has got a gastric volvulus. Admitted the patient with consultation to GI and General Surgery. 02/18: Patient seen and examined bedside. NG tube to WS doing well. Pain is well controlled with morphine INDEPENDENT TRADER. Patient's chart, labs, images were reviewed and discussed with RN 02/19: No acute events overnight. Patient seen and examined bedside. NG tube discontinued yesterday. Continue with IV INDEPENDENT TRADER morphine. Okay for transfer to the [facility] floor. No flatus at this time. Out of bed to chair. 02/20: Pain little better controlled was passing flatus and advanced to clears. Has some shoulder pain and is awaiting PA and lateral chest radiograph today. 02/21, Surg to remove chest tube, pain better, not using INDEPENDENT TRADER< will stop on clear liquid diet, has had gas, no stool, discussed with gen surg 02/22, looking bettter, has eaten more, did have pain after eating, will limit portions, had stool yesterday, has ambulated, consider DC 1 or 2 days Vitals/I&O Vitals/I&O: Vital Signs Date Time Temp Pulse Resp B/P (MAP) Pulse Ox O2 Delivery O2 Flow Rate FiO2 02/22/21 08:00 98.2 96 18 143/77 (99) 99 Room Air 98.2 I & O 02/21/21 02/21/21 02/22/21 15:00 23:00 07:00 Intake Total 400 ml Output Total 400 ml Balance -400 ml 400 ml Physical Exam General: Alert, Oriented X3, Cooperative Heart: Regular rate, Normal S1, Normal S2 Abdomen: Soft, Other (g tube) Extremities: No clubbing, No cyanosis Skin: No rashes, No breakdown Labs Labs: Laboratory Tests Test 02/21/21 16:00 Urine Collection Type Unknown Urine Color Yellow Urine Clarity Clear Urine pH 6.5 (<5.0-8.0) Urine Specific [place] <=1.005 (1.000-1.030) Urine Protein Negative mg/dL (NEG-TRACE) Urine Glucose (UA) Negative mg/dL (NEG) Urine Ketones (Stick) >=80 mg/dL (NEG) Urine Blood Moderate (NEG) Urine Nitrite Negative (NEG) Urine Bilirubin Negative (NEG) Urine Urobilinogen Dipstick 0.2 mg/dL (0.2 mg/dL) Urine Leukocyte Esterase Negative (NEG) Urine RBC >40 /HPF (0-2) Urine WBC 1-4 /HPF (0-4) Urine Squamous Epithelial Cells Mod /LPF Urine Bacteria Moderate /HPF (0-FEW) Urine Mucus Slight /LPF Review of Systems Review of Systems: abd pain, bloating Assessment and Plan Assessmemt and Plan Problems Medical Problems: (1) Abdominal pain Status: Acute (2) Gastric volvulus Status: Acute (3) Hiatal hernia Status: Acute (4) Hypokalemia Status: Acute (5) Lactic acidosis Status: Acute Comment Review of Relevant I have reviewed the following items boogie (where applicable) has been applied. Justifications for Admission Other Justification MAXWELL ERYES MD Feb 22, 2021 10:54
[2021-02-22] MEDS: IV NORMAL SALINE 1000ML BAG 1,000 ML IV SCH (11:56)
[2021-02-22 12:00] VITALS: BP 130/68
[2021-02-22 12:02] LABS: HEMATOCRIT 25.6 % (36.0-47.0); HEMOGLOBIN 8.6 g/dL (12.0-15.5); RED BLOOD COUNT 3.16 x10^6/uL (3.50-5.40)
[2021-02-22 12:10] LABS: CALCIUM 8.4 mg/dL (8.5-10.1); CREATININE 0.5 mg/dL (0.6-1.0); GFR 129.6; POTASSIUM 3.3 mmol/L (3.5-5.1)
[2021-02-22 15:00] VITALS: BP 137/75
[2021-02-22] MEDS ORDERED: POTASSIUM BICARB 20 MEQ EFFERVESCENT TABLET. PO ONE (15:00)
--- NOTE | 2021-02-22 16:26 | RAD ---
XR CHEST 2V History: Chest tube removal Comparison: 02/20/2021, 02/17/2021 Technique: PA and lateral chest radiographs. Findings: The lungs are adequately inflated. There is a small left pleural effusion and adjacent left basilar o pacities. No significant pneumothorax is identified. The right lung is clear. Cardiac mediastinal quincy houette and pulmonary vasculature are within normal limits. Osseous structures are unremarkable. Left upper quadrant surgical clip. Impression: 1. Small left pleural effusion with adjacent consolidation or atelectasis. No pneumothorax identifie d. Electronically signed by: Edgardo Wong MD (02/22/2021 4:24 PM) [facility]
[2021-02-22 19:00] VITALS: BP 130/65
[2021-02-22] MEDS: ENOXAPARIN 40 MG/0.4 ML SYRINGE. SQ SCH (21:28)
[2021-02-22 23:00] VITALS: BP 125/68
[2021-02-23 03:00] VITALS: BP 134/45
[2021-02-23] MEDS: IV RINGERS,LACTATED 1000ML 1,000 ML IV SCH ×2 (05:54→16:00)
[2021-02-23] MEDS: LEVOTHYROXINE 50 MCG TABLET PO SCH (05:54)
[2021-02-23 07:00] VITALS: BP 140/82
--- NOTE | 2021-02-23 08:35 | PDOC ---
SURGICAL PROGRESS NOTE DATE: 02/23/21 TIME: 08:34 Subjective coughing overnight and more sore today has not had breakfast yet Vital Signs Vital Signs Date Time Temp Pulse Resp B/P (MAP) Pulse Ox O2 Delivery O2 Flow Rate FiO2 02/23/21 03:00 98.5 88 16 134/45 (74) 97 98.5 02/22/21 20:00 Room Air I&O Intake and Output 02/23/21 07:00 Intake Total 100 ml Balance 100 ml Intake Oral 100 ml # Voids 2 General: Alert, Oriented X3, Cooperative Abdomen: Soft, Other (g tube clamped, dressing dry) Labs Laboratory Tests Test 02/21/21 16:00 02/22/21 11:48 Urine Collection Type Unknown Urine Color Yellow Urine Clarity Clear Urine pH 6.5 (<5.0-8.0) Urine Specific [place] <=1.005 (1.000-1.030) Urine Protein Negative mg/dL (NEG-TRACE) Urine Glucose (UA) Negative mg/dL (NEG) Urine Ketones (Stick) >=80 mg/dL (NEG) Urine Blood Moderate (NEG) Urine Nitrite Negative (NEG) Urine Bilirubin Negative (NEG) Urine Urobilinogen Dipstick 0.2 mg/dL (0.2 mg/dL) Urine Leukocyte Esterase Negative (NEG) Urine RBC >40 /HPF (0-2) Urine WBC 1-4 /HPF (0-4) Urine Squamous Epithelial Cells Mod /LPF Urine Bacteria Moderate /HPF (0-FEW) Urine Mucus Slight /LPF White Blood Count 5.0 x10^3/uL (4.0-11.0) Red Blood Count 3.16 x10^6/uL (3.50-5.40) Hemoglobin 8.6 g/dL (12.0-15.5) Hematocrit 25.6 % (36.0-47.0) Mean Corpuscular Volume 81 fL (79-100) Mean Corpuscular Hemoglobin 27 pg (25-35) Mean Corpuscular Hemoglobin Concent 34 g/dL (31-37) Red Cell Distribution Width 14.0 % (11.5-14.5) Platelet Count 234 x10^3/uL (140-400) Sodium Level 139 mmol/L (136-145) Potassium Level 3.3 mmol/L (3.5-5.1) Chloride Level 103 mmol/L (98-107) Carbon Dioxide Level 27 mmol/L (21-32) Anion Gap 9 (6-14) Blood Urea Nitrogen 6 mg/dL (7-20) Creatinine 0.5 mg/dL (0.6-1.0) Estimated GFR (Cockcroft-Gault) 129.6 Glucose Level 119 mg/dL (70-99) Calcium Level 8.4 mg/dL (8.5-10.1) Laboratory Tests Test 02/22/21 11:48 White Blood Count 5.0 x10^3/uL (4.0-11.0) Red Blood Count 3.16 x10^6/uL (3.50-5.40) Hemoglobin 8.6 g/dL (12.0-15.5) Hematocrit 25.6 % (36.0-47.0) Mean Corpuscular Volume 81 fL (79-100) Mean Corpuscular Hemoglobin 27 pg (25-35) Mean Corpuscular Hemoglobin Concent 34 g/dL (31-37) Red Cell Distribution Width 14.0 % (11.5-14.5) Platelet Count 234 x10^3/uL (140-400) Sodium Level 139 mmol/L (136-145) Potassium Level 3.3 mmol/L (3.5-5.1) Chloride Level 103 mmol/L (98-107) Carbon Dioxide Level 27 mmol/L (21-32) Anion Gap 9 (6-14) Blood Urea Nitrogen 6 mg/dL (7-20) Creatinine 0.5 mg/dL (0.6-1.0) Estimated GFR (Cockcroft-Gault) 129.6 Glucose Level 119 mg/dL (70-99) Calcium Level 8.4 mg/dL (8.5-10.1) Problem List Problems Medical Problems: (1) Abdominal pain Status: Acute (2) Gastric volvulus Status: Acute (3) Hiatal hernia Status: Acute (4) Hypokalemia Status: Acute (5) Lactic acidosis Status: Acute Assessment/Plan cxr stable ambulate diet as tolerated Justicifation of Admission Dx: Justifications for Admission: Justification of Admission Dx: Yes DANIELLE RUSSELL COOK SHIP Feb 23, 2021 08:35
[2021-02-23] MEDS: FAMOTIDINE 20 MG/2 ML VIAL IVP SCH ×2 (10:51→21:30)
[2021-02-23 11:00] VITALS: BP 130/77
[2021-02-23] MEDS ORDERED: oxyCODONE/APAP 5/325 1 TAB TABLET PO PRN (12:45)
[2021-02-23] MEDS ORDERED: guaiFENesin/CODEINE 100mg/10mg 5 ML LIQUID PO PRN (12:45)
[2021-02-23] MEDS ORDERED: KETOROLAC 30 MG/ML VIAL. IVP ONE (12:45)
[2021-02-23] MEDS: BENZONATATE 100 MG CAPSULE. PO SCH ×2 (13:08→21:31)
--- NOTE | 2021-02-23 14:20 | PDOC ---
[employer] PROGRESS NOTE Date of Service DOS: DATE: 02/23/21 TIME: 14:19 Chief Complaint Chief Complaint Acute abdominal pain secondary to gastric volvulus status post laparoscopic converted to open laparotomy with gastric volvulus reduction, diaphragmatic hernia repair, left chest tube placement and G-tube placement hypokalemia abd pain weakness Out of bed to chair, now ambulating, eating some as pain allows off IV fluids changed to PO pain meds History of Present Illness History of Present Illness Ms Lloyd is a 50-year-old female who had a large hiatal hernia and underwent a Damaris fundoplication in [place] in 05/2020. Now, she presents with abdominal pain. We did some imaging. She has got a gastric volvulus. Admitted the patient with consultation to GI and General Surgery. 02/18: Patient seen and examined bedside. NG tube to WS doing well. Pain is well controlled with morphine FARM SERVICE CONSULTANT. Patient's chart, labs, images were reviewed and discussed with RN 02/19: No acute events overnight. Patient seen and examined bedside. NG tube discontinued yesterday. Continue with IV FARM SERVICE CONSULTANT morphine. [facility] No flatus at this time. Out of bed to chair. 02/20: Pain little better controlled was passing flatus and advanced to clears. Has some shoulder pain and is awaiting PA and lateral chest radiograph today. 02/21, Surg to remove chest tube, pain better, not using FARM SERVICE CONSULTANT< will stop on clear liquid diet, has had gas, no stool, discussed with gen surg 02/22, looking bettter, has eaten more, did have pain after eating, will limit portions, had stool yesterday, has ambulated, consider DC 1 or 2 days , pain worse, was coughing overnight, i have added 2 anti-tussives, changed the pain emds, Potassium replaced yesterday add toradoll today Vitals/I&O Vitals/I&O: Vital Signs Date Time Temp Pulse Resp B/P (MAP) Pulse Ox O2 Delivery O2 Flow Rate FiO2 02/23/21 03:00 98.5 88 16 134/45 (74) 97 98.5 02/22/21 20:00 Room Air I & O 02/22/21 02/22/21 02/23/21 15:00 23:00 07:00 Intake Total 100 ml Balance 100 ml Physical Exam General: Alert, Oriented X3, Cooperative Heart: Regular rate, Normal S1, Normal S2 Abdomen: Soft, Other (g tube clamped, dressing dry) Extremities: No clubbing, No cyanosis Skin: No rashes, No breakdown Assessment and Plan Assessmemt and Plan Problems Medical Problems: (1) Abdominal pain Status: Acute (2) Gastric volvulus Status: Acute (3) Hiatal hernia Status: Acute (4) Hypokalemia Status: Acute (5) Lactic acidosis Status: Acute Comment Review of Relevant I have reviewed the following items boogie (where applicable) has been applied. Medications: Current Medications Medications (Trade) Dose Ordered Sig/Carolyn Route PRN Reason Start Time Stop Time Status Last Admin Dose Admin Potassium Bicarbonate (Potassium Effervescent Tablet) 40 meq 1X ONCE PO 02/22/21 15:00 02/22/21 15:01 DC 02/22/21 16:43 Guaifenesin/ Codeine Phosphate (Robitussin Ac) 5 ml PRN Q6HRS PRN PO COUGH 02/23/21 12:45 02/23/21 13:09 Benzonatate (Tessalon Perle) 100 mg BID PO 02/23/21 13:30 02/23/21 13:08 Ketorolac Tromethamine (Toradol 30mg Vial) 30 mg 1X ONCE IVP 02/23/21 12:45 02/23/21 12:46 DC 02/23/21 13:08 Justifications for Admission Other Justification MAXWELL REYES MD Feb 23, 2021 14:20
[2021-02-23 15:00] VITALS: BP 125/69
[2021-02-23] MEDS ORDERED: BISACODYL 10 MG SUPP.RECT. PR PRN (18:15)
[2021-02-23 19:00] VITALS: BP 120/65
[2021-02-23] MEDS: IV NORMAL SALINE 1000ML BAG 1,000 ML IV SCH (20:00)
[2021-02-23] MEDS: ENOXAPARIN 40 MG/0.4 ML SYRINGE. SQ SCH (21:30)
[2021-02-23 23:00] VITALS: BP 131/54
[2021-02-24] MEDS: IV RINGERS,LACTATED 1000ML 1,000 ML IV SCH (01:35)
[2021-02-24 03:00] VITALS: BP 116/62
[2021-02-24] MEDS: LEVOTHYROXINE 50 MCG TABLET PO SCH (06:26)
[2021-02-24 07:00] VITALS: BP 126/83
--- NOTE | 2021-02-24 08:52 | PDOC ---
SURGICAL PROGRESS NOTE DATE: 02/24/21 TIME: 08:51 Subjective resting, ate some today cough better some burning pain to incision, left flank area Vital Signs Vital Signs Date Time Temp Pulse Resp B/P (MAP) Pulse Ox O2 Delivery O2 Flow Rate FiO2 02/24/21 04:20 18 Room Air 02/24/21 03:00 98.6 84 116/62 (80) 98 98.6 I&O Intake and Output 02/24/21 07:00 Intake Total 400 ml Balance 400 ml Intake Oral 400 ml # Voids 9 General: Alert, Oriented X3, Cooperative Abdomen: Soft, Other (g tube in place, incision intact) Labs Laboratory Tests Test 02/22/21 11:48 White Blood Count 5.0 x10^3/uL (4.0-11.0) Red Blood Count 3.16 x10^6/uL (3.50-5.40) Hemoglobin 8.6 g/dL (12.0-15.5) Hematocrit 25.6 % (36.0-47.0) Mean Corpuscular Volume 81 fL (79-100) Mean Corpuscular Hemoglobin 27 pg (25-35) Mean Corpuscular Hemoglobin Concent 34 g/dL (31-37) Red Cell Distribution Width 14.0 % (11.5-14.5) Platelet Count 234 x10^3/uL (140-400) Sodium Level 139 mmol/L (136-145) Potassium Level 3.3 mmol/L (3.5-5.1) Chloride Level 103 mmol/L (98-107) Carbon Dioxide Level 27 mmol/L (21-32) Anion Gap 9 (6-14) Blood Urea Nitrogen 6 mg/dL (7-20) Creatinine 0.5 mg/dL (0.6-1.0) Estimated GFR (Cockcroft-Gault) 129.6 Glucose Level 119 mg/dL (70-99) Calcium Level 8.4 mg/dL (8.5-10.1) Problem List Problems Medical Problems: (1) Abdominal pain Status: Acute (2) Gastric volvulus Status: Acute (3) Hiatal hernia Status: Acute (4) Hypokalemia Status: Acute (5) Lactic acidosis Status: Acute Assessment/Plan added colace, ambulate Justicifation of Admission Dx: Justifications for Admission: Justification of Admission Dx: Yes NICKEL,DANIELLE L TRIPE WASHER Feb 24, 2021 08:52
[2021-02-24] MEDS ORDERED: POLYETHYLENE GLYCOL 3350 17 GM PACKET. PO PRN (09:15)
[2021-02-24] MEDS ORDERED: DOCUSATE SODIUM 100 MG CAPSULE. PO SCH (09:30)
[2021-02-24] MEDS ORDERED: POLYETHYLENE GLYCOL 3350 17 GM PACKET. PO ONE (10:00)
--- NOTE | 2021-02-24 10:28 | PDOC ---
[employer] PROGRESS NOTE Date of Service DOS: DATE: 02/24/21 TIME: : Chief Complaint Chief Complaint Acute abdominal pain secondary to gastric volvulus status post laparoscopic converted to open laparotomy with gastric volvulus reduction, diaphragmatic hernia repair, left chest tube placement and G-tube placement hypokalemia abd pain weakness Out of bed to chair, now ambulating, eating some as pain allows off IV fluids changed to PO pain meds History of Present Illness History of Present Illness Ms Lloyd is a 50-year-old female who had a large hiatal hernia and underwent a Damaris fundoplication in [place] in 05/2020. Now, she presents with abdominal pain. We did some imaging. She has got a gastric volvulus. Admitted the patient with consultation to GI and General Surgery. 02/18: Patient seen and examined bedside. NG tube to WS doing well. 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 Patient's chart, labs, images were reviewed and discussed with RN 02/19: No acute events overnight. Patient seen and examined bedside. NG tube discontinued yesterday. Continue with IV PROGRAMMER ANALYST CONSULTANT morphine. [facility] No flatus at this time. Out of bed to chair. 02/20: Pain little better controlled was passing flatus and advanced to clears. Has some shoulder pain and is awaiting PA and lateral chest radiograph today. 02/21, Surg to remove chest tube, pain better, not using PROGRAMMER ANALYST CONSULTANT< will stop on clear liquid diet, has had gas, no stool, discussed with gen surg 02/22, looking bettter, has eaten more, did have pain after eating, will limit portions, had stool yesterday, has ambulated, consider DC 1 or 2 days , pain worse, was coughing overnight, i have added 2 anti-tussives, changed the pain emds, Potassium replaced yesterday add toradoll today 02/24, pain better, had questions abotu wound care Vitals/I&O Vitals/I&O: Vital Signs Date Time Temp Pulse Resp B/P (MAP) Pulse Ox O2 Delivery O2 Flow Rate FiO2 02/24/21 07:00 98.1 86 17 126/83 (97) 96 Room Air 98.1 I & O 02/23/21 02/23/21 02/24/21 15:00 23:00 07:00 Intake Total 200 ml 200 ml Balance 200 ml 200 ml Physical Exam General: Alert, Oriented X3, Cooperative Heart: Regular rate, Normal S1, Normal S2 Abdomen: Soft, Other (g tube in place, incision intact) Extremities: No clubbing, No cyanosis Skin: No rashes, No breakdown Review of Systems Review of Systems: feels constipated today, takes miralax at home, will add sched and prn ambulate DC when able Assessment and Plan Assessmemt and Plan Problems Medical Problems: (1) Abdominal pain Status: Acute (2) Gastric volvulus Status: Acute (3) Hiatal hernia Status: Acute (4) Hypokalemia Status: Acute (5) Lactic acidosis Status: Acute Comment Review of Relevant I have reviewed the following items boogie (where applicable) has been applied. Medications: Current Medications Medications (Trade) Dose Ordered Sig/Carolyn Route PRN Reason Start Time Stop Time Status Last Admin Dose Admin Guaifenesin/ Codeine Phosphate (Robitussin Ac) 5 ml PRN Q6HRS PRN PO COUGH 02/23/21 12:45 02/23/21 13:09 Benzonatate (Tessalon Perle) 100 mg BID PO 02/23/21 13:30 02/23/21 21:31 Oxycodone/ Acetaminophen (Percocet 5/325) 1 tab PRN Q4HRS PRN PO PAIN 02/23/21 12:45 02/24/21 03:50 Ketorolac Tromethamine (Toradol 30mg Vial) 30 mg 1X ONCE IVP 02/23/21 12:45 02/23/21 12:46 DC 02/23/21 13:08 Justifications for Admission Other Justification MAXWELL REYES MD Feb 24, 2021 10:28
[2021-02-24] MEDS ORDERED: DOCU-109 PO (10:30)
[2021-02-24] MEDS ORDERED: OXYC1TAB15 PO (10:30)
[2021-02-24] MEDS ORDERED: POLY17PO52 PO (10:30)
[2021-02-24] MEDS: BENZONATATE 100 MG CAPSULE. PO SCH (10:32)
[2021-02-24] MEDS: FAMOTIDINE 20 MG/2 ML VIAL IVP SCH (10:32)
[2021-02-24 11:00] VITALS: BP 133/78
--- NOTE | 2021-02-24 11:53 | NUR ---
SW following. Discussed with RN, discharge home with self care. RN advised no SW needs.
--- NOTE | 2021-02-24 14:55 | NUR ---
pt discharged home via wheelchair with all of her belongings alongside her partner. discharge paperwork reviewed with patient and questions answered. verbalized understanding. no other needs.
--- NOTE | 2021-02-24 17:39 | PDOC ---
G I PROGRESS NOTE Reason for Follow-up Gastric volvulus/GERD Subjective Feeling better except for reflux Physical Exam Lungs clear CV S1 S2 ABD +BS< soft, nontender, +BS Review of Relevant I have reviewed the following items boogie (where applicable) has been applied. Labs Microbiology 02/21/21 Urine Culture - Final, Complete 02/21/21 Antimicrobic Susceptibility - Final, Complete Medications Current Medications Sodium Chloride 1,000 ml @ 1,000 mls/hr 1X ONCE IV Last administered on 02/17/21at 04:51; Start 02/17/21 at 05:00; Stop 02/17/21 at 05:59; Status DC Famotidine (Pepcid Vial) 20 mg 1X ONCE IVP Last administered on 02/17/21at 04:52; Start 02/17/21 at 05:00; Stop 02/17/21 at 05:01; Status DC Ondansetron HCl (Zofran) 4 mg 1X ONCE IVP Last administered on 02/17/21at 04:51; Start 02/17/21 at 05:00; Stop 02/17/21 at 05:01; Status DC Fentanyl Citrate (Fentanyl 2ml Vial) 75 mcg 1X ONCE IV Last administered on 02/17/21at 04:51; Start 02/17/21 at 05:00; Stop 02/17/21 at 05:01; Status DC Morphine Sulfate (Morphine Sulfate) 4 mg 1X ONCE IVP Last administered on 02/17/21at 05:23; Start 02/17/21 at 06:00; Stop 02/17/21 at 06:01; Status DC Iohexol (Omnipaque 350 Mg/ml) 100 ml 1X ONCE IV Last administered on 02/17/21at 05:53; Start 02/17/21 at 06:00; Stop 02/17/21 at 06:01; Status DC Info (CONTRAST GIVEN -- Rx MONITORING) 1 each PRN DAILY PRN MC SEE COMMENTS; Start 02/17/21 at 06:00; Stop 02/19/21 at 05:59; Status DC Iohexol (Omnipaque 350 Mg/ml) 100 ml STK-MED ONCE .ROUTE ; Start 02/17/21 at 05:56; Stop 02/17/21 at 05:56; Status DC Hydromorphone HCl (Dilaudid) 0.5 mg 1X ONCE IVP Last administered on 02/17/21at 06:20; Start 02/17/21 at 06:30; Stop 02/17/21 at 06:31; Status DC Labetalol HCl (Normodyne Iv Push) 10 mg 1X ONCE IVP Last administered on 02/17/21at 06:43; Start 02/17/21 at 06:30; Stop 02/17/21 at 06:31; Status DC Hydromorphone HCl (Dilaudid) 0.5 mg 1X ONCE IVP Last administered on 02/17/21at 07:38; Start 02/17/21 at 07:30; Stop 02/17/21 at 07:31; Status DC Sodium Chloride 1,000 ml @ 1,000 mls/hr 1X ONCE IV Last administered on 02/17/21at 07:38; Start 02/17/21 at 07:30; Stop 02/17/21 at 08:29; Status DC Ondansetron HCl (Zofran) 4 mg PRN Q8HRS PRN IVP NAUSEA/VOMITING; Start 02/17/21 at 08:15; Stop 02/18/21 at 08:14; Status DC Hydromorphone HCl (Dilaudid) 0.5 mg PRN Q2HRS PRN IVP PAIN Last administered on 02/21/21at 21:27; Start 02/17/21 at 08:15; Stop 02/24/21 at 16:39; Status DC Sodium Chloride 1,000 ml @ 100 mls/hr 1X ONCE IV Last administered on 02/17/21at 08:15; Start 02/17/21 at 08:15; Stop 02/17/21 at 18:14; Status DC Fentanyl Citrate (Fentanyl 2ml Vial) 25 mcg PRN Q5MIN PRN IVP MILD PAIN 1-3; Start 02/17/21 at 12:15; Stop 02/18/21 at 12:14; Status DC Fentanyl Citrate (Fentanyl 2ml Vial) 50 mcg PRN Q5MIN PRN IVP MODERATE PAIN 4-6 Last administered on 02/17/21at 19:05; Start 02/17/21 at 12:15; Stop 02/18/21 at 12:14; Status DC Morphine Sulfate (Morphine Sulfate) 1 mg PRN Q10MIN PRN IVP SEVERE PAIN 7-10 Last administered on 02/17/21at 19:05; Start 02/17/21 at 12:15; Stop 02/18/21 at 12:14; Status DC Ringer's Solution 1,000 ml @ 30 mls/hr Q24H IV ; Start 02/17/21 at 12:15; Stop 02/18/21 at 00:14; Status DC Hydromorphone HCl (Dilaudid) 0.5 mg PRN Q10MIN PRN IVP SEVERE PAIN 7-10, 2nd CHOICE Last administered on 02/17/21at 19:59; Start 02/17/21 at 12:15; Stop 02/18/21 at 12:14; Status DC Prochlorperazine Edisylate (Compazine) 5 mg PACU PRN PRN IVP NAUSEA, MRX1; Start 02/17/21 at 12:15; Stop 02/18/21 at 12:14; Status DC Bupivacaine HCl/ Epinephrine Bitart (Sensorcain-Epi 0.5% Kit) 30 ml STK-MED ONCE .ROUTE Last administered on 02/17/21at 15:40; Start 02/17/21 at 13:44; Stop 02/17/21 at 13:44; Status DC Propofol (Diprivan) 200 mg STK-MED ONCE IV ; Start 02/17/21 at 14:00; Stop 02/17/21 at 14:01; Status DC Desflurane (Suprane) 60 ml STK-MED ONCE IH ; Start 02/17/21 at 14:01; Stop 02/17/21 at 14:01; Status DC Lidocaine HCl (Lidocaine Pf 2% Vial) 5 ml STK-MED ONCE .ROUTE ; Start 02/17/21 at 14:01; Stop 02/17/21 at 14:01; Status DC Phenylephrine HCl (PHENYLEPHRINE in 0.9% NACL PF) 1 mg STK-MED ONCE IV ; Start 02/17/21 at 14:01; Stop 02/17/21 at 14:01; Status DC Rocuronium Mclean (Zemuron) 50 mg STK-MED ONCE .ROUTE ; Start 02/17/21 at 14:02; Stop 02/17/21 at 14:02; Status DC Cefoxitin Sodium (Mefoxin) 2 gm 1X PERIOP ONCE IVP Last administered on 1 04/20/20at 14:55; Start 02/17/21 at 14:45; Stop 02/17/21 at 14:46; Status DC Fentanyl Citrate (Fentanyl 2ml Vial) 100 mcg STK-MED ONCE .ROUTE ; Start 02/17/21 at 15:42; Stop 02/17/21 at 15:42; Status DC Albumin Human 500 ml @ As Directed STK-MED ONCE IV ; Start 02/17/21 at 16:06; Stop 02/17/21 at 16:06; Status DC Rocuronium Mclean (Zemuron) 100 mg STK-MED ONCE .ROUTE ; Start 02/17/21 at 16:40; Stop 02/17/21 at 16:41; Status DC Glycopyrrolate (Robinul) 1 mg STK-MED ONCE .ROUTE ; Start 02/17/21 at 17:28; Stop 02/17/21 at 17:28; Status DC Glycopyrrolate (Robinul) 1 mg STK-MED ONCE .ROUTE ; Start 02/17/21 at 17:28; Stop 02/17/21 at 17:28; Status DC Hydromorphone HCl (Dilaudid) 2 mg STK-MED ONCE .ROUTE ; Start 02/17/21 at 17:38; Stop 02/17/21 at 17:38; Status DC Fentanyl Citrate (Fentanyl 2ml Vial) 100 mcg STK-MED ONCE .ROUTE ; Start 02/17/21 at 18:33; Stop 02/17/21 at 18:34; Status DC Morphine Sulfate (Morphine Sulfate) 2 mg STK-MED ONCE .ROUTE ; Start 02/17/21 at 18:34; Stop 02/17/21 at 18:34; Status DC Hydromorphone HCl (Dilaudid) 2 mg STK-MED ONCE .ROUTE ; Start 02/17/21 at 19:56; Stop 02/17/21 at 19:57; Status DC Famotidine (Pepcid Vial) 20 mg BID IVP Last administered on 02/24/21at 10:32; Start 02/17/21 at 21:00; Stop 02/24/21 at 16:39; Status DC Enoxaparin Sodium (Lovenox 40mg Syringe) 40 mg Q24H SQ Last administered on 02/23/21at 21:30; Start 02/17/21 at 20:00; Stop 02/24/21 at 16:39; Status DC Sodium Chloride (Normal Saline Flush) 3 ml QSHIFT PRN IV AFTER MEDS AND BLOOD DRAWS; Start 02/17/21 at 20:00; Stop 02/24/21 at 16:39; Status DC Ringer's Solution 1,000 ml @ 100 mls/hr Q10H IV Last administered on 02/24/21at 01:35; Start 02/17/21 at 20:00; Stop 02/24/21 at 16:39; Status DC Naloxone HCl (Narcan) 0.4 mg PRN Q2MIN PRN IV SEE INSTRUCTIONS; Start 02/17/21 at 20:00; Stop 02/24/21 at 16:39; Status DC Sodium Chloride 1,000 ml @ 25 mls/hr Q24H IV Last administered on 02/20/21at 21:35; Start 02/17/21 at 20:00; Stop 02/24/21 at 16:39; Status DC Morphine Sulfate 30 ml @ 0 mls/hr CONT PRN PRN IV PER PROTOCOL Last administered on 02/17/21at 20:58; Start 02/17/21 at 20:00; Stop 02/21/21 at 10:08; Status DC Ondansetron HCl (Zofran) 4 mg PRN Q6HRS PRN IVP NAUESA, 1ST CHOICE Last administered on 02/23/21at 03:32; Start 02/17/21 at 20:00; Stop 02/24/21 at 16:39; Status DC Levothyroxine Sodium (Synthroid) 50 mcg DAILY06 PO Last administered on 02/24/21at 06:26; Start 02/20/21 at 06:00; Stop 02/24/21 at 16:39; Status DC Potassium Bicarbonate (Potassium Effervescent Tablet) 40 meq 1X ONCE PO Last administered on 02/22/21at 16:43; Start 02/22/21 at 15:00; Stop 02/22/21 at 15:01; Status DC Guaifenesin/ Codeine Phosphate (Robitussin Ac) 5 ml PRN Q6HRS PRN PO COUGH Last administered on 02/23/21at 13:09; Start 02/23/21 at 12:45; Stop 02/24/21 at 16:39; Status DC Benzonatate (Tessalon Perle) 100 mg BID PO Last administered on 02/24/21at 10:32; Start 02/23/21 at 13:30; Stop 02/24/21 at 16:39; Status DC Oxycodone/ Acetaminophen (Percocet 5/325) 1 tab PRN Q4HRS PRN PO PAIN Last administered on 02/24/21at 03:50; Start 02/23/21 at 12:45; Stop 02/24/21 at 16:39; Status DC Ketorolac Tromethamine (Toradol 30mg Vial) 30 mg 1X ONCE IVP Last administered on 02/23/21at 13:08; Start 02/23/21 at 12:45; Stop 02/23/21 at 12:46; Status DC Bisacodyl (Dulcolax Supp) 10 mg PRN DAILY PRN [place] CONSTIPATION; Start 02/23/21 at 18:15; Stop 02/24/21 at 16:39; Status DC Docusate Sodium (Colace) 100 mg DAILY PO Last administered on 02/24/21at 10:32; Start 02/24/21 at 09:30; Stop 02/24/21 at 16:39; Status DC Polyethylene Glycol (miraLAX PACKET) 17 gm 1X ONCE PO Last administered on 02/24/21at 10:33; Start 02/24/21 at 10:00; Stop 02/24/21 at 10:01; Status DC Polyethylene Glycol (miraLAX PACKET) 17 gm PRN BID PRN PO CONSTIPATION; Start 02/24/21 at 09:15; Stop 02/24/21 at 16:39; Status DC Active Scripts Active Polyethylene Glycol 3350 17 Gm Powd.pack 17 Gm PO PRN BID PRN Colace (Docusate Sodium) 100 Mg Capsule 100 Mg PO DAILY Percocet 5-325 Mg Tablet (Oxycodone/Acetaminophen) 1 Each Tablet 1 Tab PO PRN Q4HRS PRN Reported Levothyroxine (Levothyroxine Sodium) 50 Mcg Capsule 50 Mcg PO DAILY Vitals/I & O Vital Sign - Last 24 Hours 02/23/21 02/23/21 02/23/21 02/24/21 19:00 20:00 23:00 03:00 Temp 98.4 98.4 98.6 98.4 98.4 98.6 Pulse 100 86 84 Resp 18 17 18 B/P (MAP) 120/65 (83) 131/54 (79) 116/62 (80) Pulse Ox 96 98 98 O2 Delivery Room Air Room Air Room Air Room Air 02/24/21 02/24/21 02/24/21 02/24/21 03:50 04:20 07:00 08:00 Temp 98.1 98.1 Pulse 86 Resp 19 18 17 B/P (MAP) 126/83 (97) Pulse Ox 96 O2 Delivery Room Air Room Air Room Air Room Air 02/24/21 11:00 Temp 98.2 98.2 Pulse 78 Resp 17 B/P (MAP) 133/78 (96) Pulse Ox 99 O2 Delivery Room Air Intake and Output 02/23/21 02/23/21 02/24/21 14:59 22:59 06:59 Intake Total 200 ml 200 ml Balance 200 ml 200 ml Problem List Problems Medical Problems: (1) Abdominal pain Status: Acute (2) Gastric volvulus Status: Acute (3) Hiatal hernia Status: Acute (4) Hypokalemia Status: Acute (5) Lactic acidosis Status: Acute Assessment GERD- S/p gastric volvulus repair, PPI therapy with Protonix 40 mg daily written , follow up as needed. Justicifation of Admission Dx: Justifications for Admission: Justification of Admission Dx: Yes ESTEFANI ASCENCIO MD Feb 24, 2021 17:39
== END 2021-02-24 14:55 | disposition home or self-care (01) | DRG 327 ==
LOC: ER 04:26 → 5 NORTH 07:50 → 1 WEST ICU 08:52 → 5 NORTH 02-19 13:15
PROVIDERS: ADMIT Internal Medicine; ATTEND Internal Medicine
PROC: 0W9B30Z Drainage of Left Pleural Cavity with Drainage Device, Percutaneous Approach (ICD-10-PCS; 2021-02-17)
PROC: 3E0G76Z Introduction of Nutritional Substance into Upper GI, Via Natural or Artificial Opening (ICD-10-PCS; 2021-02-17)
PROC: 0DH60UZ Insertion of Feeding Device into Stomach, Open Approach (ICD-10-PCS; 2021-02-17)
PROC: 0BQT0ZZ Repair Diaphragm, Open Approach (ICD-10-PCS; principal; 2021-02-17 14:00)
DX: K44.9 Diaphragmatic hernia without obstruction or gangrene (principal); E87.2 Acidosis; E03.9 Hypothyroidism, unspecified; E87.6 Hypokalemia; K21.9 Gastro-esophageal reflux disease without esophagitis; K31.89 Other diseases of stomach and duodenum; K80.20 Calculus of gallbladder without cholecystitis without obstruction; R13.10 Dysphagia, unspecified; Z53.31 Laparoscopic surgical procedure converted to open procedure; Z79.899 Other long term (current) drug therapy; Z82.49 Family history of ischemic heart disease and other diseases of the circulatory system; Z83.3 Family history of diabetes mellitus; Z86.711 Personal history of pulmonary embolism; Z87.19 Personal history of other diseases of the digestive system; Z98.51 Tubal ligation status; Z86.718 Personal history of other venous thrombosis and embolism; Z79.01 Long term (current) use of anticoagulants
CPT/HCPCS: 36415; 71045; 71046; 71275; 74018; 74174; 80048; 80053; 81001; 82553; 83605; 83690; 83735; 84443; 84484; 85007; 85025; 85027; 86850; 86900; 86901; 87077; 87086; 87186; 87426; 93005; 96361; 96374; 96375; 96376; A4314; A4930; A6402; C1729; G0480; J0694; J1170; J1650; J1885; J2270; J2370; J2405; J2704; J3010; J3490; J7030; J7120; P9045; Q9967; 99285-25; G0378

== ENCOUNTER → 2021-05-30 | Outpatient (CLI) | payer OTHER ==
[~2021-05-30] MED LIST changes: +DOCU-109 PO; +LEVO50CA3 PO; +OXYC1TAB15 PO; +POLY17PO52 PO
--- NOTE | 2021-05-31 04:21 | KCIC ---
EXAMINATION: XR CHEST 2V, XR ABDOMEN 2V CLINICAL HISTORY: Chest and abdominal pain. S/P abdominal surgery. History of gastric volvulus and br east implants. EXAM DATE/TIME: 05/30/2021 2:15 PM COMPARISON: None FINDINGS: Lines, Tubes, and Devices: None. Cardiomediastinal Silhouette: Within normal limits. Lungs and Pleura: No evidence of focal airspace consolidation or pleural effusion. Pulmonary vasculat ure unremarkable. Bones and Soft Tissues: Thoracolumbar degenerative changes. Abdomen: Nonobstructive bowel gas pattern with scattered stool throughout the colon. No evidence of p neumoperitoneum or suspicious abdominal calcifications. Pelvic phleboliths. IMPRESSION: No evidence of acute cardiopulmonary abnormality. Nonobstructive bowel gas pattern. Electronically signed by: Clovis Crandall DO (05/31/2021 4:19 AM) [facility]
== END ==
LOC: KCIC 14:01
PROVIDERS: ATTEND Surgery
DX: M47.815 Spondylosis without myelopathy or radiculopathy, thoracolumbar region (principal); I86.2 Pelvic varices; K31.89 Other diseases of stomach and duodenum; M79.605 Pain in left leg
CPT/HCPCS: 71046; 74021